=== PATIENT | female | born 1950 | race African-American/Black ===

== ENCOUNTER 2025-02-21 04:14 | Emergency (ER) | payer MEDICARE, SELFPAY ==
[2025-02-21] VITALS (20 sets, daily range): BP systolic 115–146; BP diastolic 53–110; PULSE 59–71; RESP 11–23; TEMP 36.5; O2SAT 96–100
--- NOTE | ~2025-02-21 | XR_ITS ---
Portable chest x-ray Comparison: None Clinical History: Chills, seizure Findings: Lungs are clear, without focal consolidation or pleural effusion. Cardiomediastinal silho uette is unremarkable. Bones and soft tissues are unremarkable. Impression: Normal chest. Reviewed, dictated and finalized at [facility]. Impression: Normal chest.
--- NOTE | ~2025-02-21 | CT_ITS ---
CT ANGIOGRAM NECK AND HEAD History: CVA, aneurysm, seizure. Technique: Axial noncontrast imaging of the brain was performed. Serial spiral axial images through t he head and neck were then obtained during arterial phase IV injection of 100 cc of Omnipaque 350. 3- D postprocessing and MIP images were then reconstructed on the remote workstation. Dose reduction nathalie hnique was used on this scan by utilizing automated exposure control and iterative reconstruction nathalie hnique. The dose-length product (DLP) was 1576.89 mGy-cm. CTA neck findings: Bilateral vertebral arteries are patent. Bilateral common carotid, internal carot id, and external carotid arteries are patent. There are scattered calcified plaques the proximal inte rnal carotid arteries, without significant stenosis. No large vessel occlusion seen. The proximal rig ht internal carotid artery demonstrates 0% stenosis relative to the normal distal artery lumen diamet er. The proximal left internal carotid artery demonstrates 0% stenosis relative to the normal distal artery lumen diameter. CTA head findings: Distal vertebral arteries, basilar artery, and posterior cerebral arteries are pat ent. Distal internal carotid arteries, middle cerebral arteries, and anterior cerebral arteries are p atent. No large vessel occlusion. No patent aneurysm identified. No stenosis evident. Axial noncontrast imaging of brain demonstrates aneurysm clips at the right atka of [place] region. There is chronic encephalomalacia in the right parietal lobe. No definite acute infarct or acute intr acranial hemorrhage seen. No mass effect or midline shift. Paranasal sinuses and mastoid air cells ar e clear. Calvarium intact. Impression: No significant/acute abnormality seen. Aneurysm clips at the right atka of [place] region. 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 Reviewed, dictated and finalized at location . Impression: No significant/acute abnormality seen. Aneurysm clips at the right [place]ka of [place] region. 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
--- NOTE | 2025-02-21 04:27 | ED.SEIZURE ---
HPI - Seizure General Chief Complaint: Unspecified Stated Complaint: seizure Time Seen by Provider: 02/21/25 04:26 Source: patient and family (Son, granddaughter) Mode of arrival: ambulatory History of Present Illness HPI Narrative: [id number] Patient presents with report of bilateral arm shaking/tremors. She has a history of seizures for which she is on both Keppra and divalproex. She states she has been taking her medications. She thought perhaps there has been some dose changes recently but she does not know, her daughter was helping her. History of a CVA and in a few years ago. Patient states she thought she had possibly been missing some doses of medication but unsure. Patient states she was having difficulty wiping herself after having a bowel movement due to the tremors although she remained conscious the entire time. After having a bowel movement she walked back to the couch and her granddaughter reports seeing the bilateral arm shaking. No loss of consciousness. Did not strike her head. No tongue trauma. No incontinence. She denies any new medications. Does not drink alcohol any longer. Denies any recreational drugs. States her sleep has been fine. She notes that she has been eating and drinking okay. Her only other symptoms review of symptom is that she has felt very chilled lately, cold constantly. No cough, no diarrhea, no sick contacts. Patient resides out of town, her PCP is Tammie Putnam in [place] and her neurologist is Reyes Colunga. Related Data Allergies Allergy/AdvReac Type Severity Reaction Status Date / Time No Known Allergies Allergy Verified 02/21/25 07:49 [facility] Past Medical History Medical History (Updated 02/22/25 @ 00:00 by Alicia Hull) Chronic right shoulder pain Seizure disorder Right hand dominant Aneurysm CVA (cerebral vascular accident) Social History Social History Social History: Has a daughter in [place] and a son & grand-daughter in the area Additional living arrangements comments: Resides in [place] Exam Narrative: GENERAL: Thin but well-nourished, and in no acute distress. HEAD: Normocephalic, atraumatic. EYES: Non injected, non icteric ENT: Nares clear, no rhinorrhea or epistaxis. Gross auditory acuity intact. NECK: Supple. No meningismus. CHEST: Speaking in full sentences. No respiratory distress. HEART: Regular rate and rhythm. . ABDOMEN: Soft, nondistended. EXTREMITIES: Normal range of motion. SKIN: Warm, dry, no rash. NEURO: No focal deficits. Alert and oriented. Answering questions. Following commands. Normal speech without aphasia or dysarthria. PSYCH: Normal mood and affect. Course Vital Signs Vital signs: Vital Signs Temperature 97.7 F 02/21/25 04:36 Pulse Rate 66 02/21/25 04:36 Respiratory Rate 15 02/21/25 04:36 Blood Pressure 134/81 02/21/25 04:36 Pulse Oximetry 100 02/21/25 04:36 Oxygen Delivery Room Air 02/21/25 04:36 Temperature 97.7 F 02/21/25 04:36 Pulse Rate 59 L 02/21/25 07:46 Respiratory Rate 12 02/21/25 07:46 Blood Pressure 125/68 02/21/25 07:46 Pulse Oximetry 98 02/21/25 07:46 Oxygen Delivery Room Air 02/21/25 04:36 MDM - Seizure MDM Narrative Medical decision making narrative: Patient presents with report of concern for seizure. She has a known seizure disorder for which she is on Keppra and divalproex. Patient reports that she had bilateral arm tremors while she was attempting to wipe after using the restroom. Granddaughter witnessed bilateral arms shaking but patient retained consciousness. In the emergency department they are afebrile with vital signs within normal limits. Has been chilled. Work up generally unremarkable except for ua. Will treat as UTI. Given first dose Abx in ED with rest of course prescribed. Advised f/u with PCP and neurologist back in [place]. Differential Diagnosis Differential diagnosis: Likely intractable seizure disorder, focal seizure, generalized seizure, new onset seizure, epileptic seizure, status epilepticus and other (Aneurysm, intracranial hemorrhage, subtherapeutic antiepileptics, thyroid disorder, electrolyte abnormalities) Lab Data Attestation: I reviewed the patient's lab results. 02/21/25 05:54 02/21/25 05:54 Labs: Lab Results 02/21/25 Range/Units 05:54 WBC 8.5 (4.5-10.0) K/mm3 RBC 4.10 L (4.2-5.4) M/mm3 Hgb 12.0 (12.0-15.0) g/dL Hct 35.9 L (37.0-47.0) % MCV 87.6 (80-100) fl MCH 29.3 (26-34) pg MCHC 33.4 (32-36) g/dl RDW 15.3 H (11.5-14.5) % Plt Count 122 L (150-375) k/mm3 MPV 12.1 H (7.4-10.4) fl Immature Gran % (Auto) 0.2 (0-0.5) % Neut % (Auto) 72.0 (45.5-73.1) % Lymph % (Auto) 11.7 L (18.3-44.2) % [place] % (Auto) 15.8 H (2.6-8.5) % Eos % (Auto) 0.1 (0-4.4) % Baso % (Auto) 0.2 (0.2-1.2) % Lymph # (Auto) 1.00 (0.9-3.2) K/mm3 [place] # (Auto) 1.4 H (0.1-0.6) K/mm3 Eos # (Auto) 0.0 (0-0.3) K/mm3 Baso # (Auto) 0.0 (0.0-0.1) K/mm3 Abs Immat Gran (auto) 0.02 (0.00-0.031) K/mm3 Absolute Neuts (auto) 6.1 (1.3-6.7) K/mm3 Absolute Nucleated RBC 0.000 (0.0-0.012) K/mm3 Nucleated RBC % 0.0 (0.0-0.2) % Sodium 144 (137-145) mmol/L Potassium 3.5 (3.4-5.0) mmol/L Chloride 106 (98-107) mmol/L Carbon Dioxide 29 (22-30) mmol/L Anion Gap 9 (4-12) mmol/L BUN 13 (7-17) mg/dL Creatinine 0.75 (0.7-1.0) mg/dL Estim Creat Clear Calc 43 ml/min Estimated GFR > 60 (59 - ) Glucose 82 (65-110) mg/dL Calcium 9.7 (8.4-10.2) mg/dL Magnesium 2.0 (1.6-2.3) mg/dL Total Bilirubin 0.3 (0.2-1.3) mg/dL AST 26 (14-36) U/L ALT 16 (6-35) U/L Alkaline Phosphatase 69 (38-126) U/L Total Creatine Kinase 72 (30-135) U/L Total Protein 7.0 (6.3-8.2) g/dL Albumin 4.2 (3.5-5.1) g/dL TSH 1.160 (0.465-4.680) uIU/mL Urine Color Yellow (Yellow) Urine Appearance Clear (Clear) Urine pH 5.5 (5.0-9.0) Ur Specific [place] 1.015 (1.001-1.035) Urine Protein Negative (Negative) mg/dL Urine Glucose (UA) Negative (Negative) mg/dL Urine Ketones Negative (Negative) mg/dL Ur Blood (Man) Negative (Negative) Urine Nitrate Negative (Negative) Urine Bilirubin Negative (Negative) Urine Urobilinogen 0.2 (<2.0) mg/dL Leukocyte Esterase Rfl 2+ H (Negative) SCOTTIE/UL Urine RBC 0-2 (0-2) /hpf Urine WBC 11-20 H (0-3) /hpf Ur Squamous Epith Cells Occasional (Few) /hpf Urine Bacteria None seen /hpf Urine Casts 0-2 Urine Opiates Screen Negative (Negative) Urine Methadone Screen Negative (Negative) Ur Barbiturates Screen Negative (Negative) Free Valproic Acid Pending Total Valproic Acid Pending Levetiracetam Pending Ur Phencyclidine Scrn Negative (Negative) Ur Amphetamine Screen Negative (Negative) U Benzodiazepines Scrn Negative (Negative) Urine Cocaine Screen Negative (Negative) U Cannabinoids Screen Negative (Negative) Influenza A (RT-PCR) Negative (Negative) Influenza B (RT-PCR) Negative (Negative) RSV (RT-PCR) Negative (Negative) SARS-CoV-2 RNA (RT-PCR) Negative (Negative) Imaging Data Radiologist's impression: Impressions Chest X-Ray 02/21/25 06:14 Impression: Normal chest. Head/Neck CTA 02/21/25 07:37 Impression: No significant/acute abnormality seen. Aneurysm clips at the right [place]. 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 Discharge Plan Discharge Clinical Impression: Chills (without fever), Abnormal urinalysis, History of seizure, Tremors of nervous system, Encephalomalacia Patient Disposition: Home Condition: Stable Instructions: Antibiotic Form, Epilepsy (DC), Urinary Tract Infection in Older Adults (ED) Additional Instructions: Your workup was reassuring although you did have an abnormal urinalysis and so are being treated for urinary tract infection. You received your first dose of antibiotic in the ED and the rest has been prescribed. It might explain why you have been feelign chilled and shaking. Continue taking your medications as prescribed including your anti seizure medications. Follow-up with your primary care physician and neurologist back in [place]. Return to the emergency department any new or worsening symptoms Patient Language: Marshallese Prescriptions: New cephalexin 500 mg tablet 500 mg PO Q6H 5 Days Qty: 19 0RF Rx Instructions: received first dose in ED 7/3 AM Follow-up/Referrals: PHYSICIAN NOT ON STAFF,NONSTAFF [Primary Care Provider] - Time of Disposition: 07:52
--- OUTSIDE RECORDS SUMMARY | 2025-02-21 05:42 | XMS_ITS | Encounter Summary ---
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
--- OUTSIDE RECORDS SUMMARY | 2025-02-21 05:42 | XMS_ITS | Encounter Summary ---
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 Gender Identity Not on file Sexual Orientation Not on file documented as of this encounter Miscellaneous Notes * Miscellaneous - Iggy Grover MD - 04/21/2012 8:03 AM CDT Verified Results Collected/Examined: Apr 12, 2012 12:00AM MW MAMMO SCREEN DIG WITH CAD REPORT [facility] [address] [place] [address] * [place] [address] * [phone] Patient: Jojo Shook Date of : 1950 Referring Physician: Iggy Grover cc: Exam Date: 04/12/2012 Procedure: Digital Screening Mamm w/cad - bilateral REASON FOR EXAM / PATIENT HISTORY Patient is 61 years old and is seen for screening. The patient has no significant personal risk factors. The patient has no personal history of cancer.The patient has no family history of breast cancer. The following views were obtained: bilateral CC and bilateral MLO. FILM COMPARISON The present examination has been compared to a prior imaging study performed at [facility] on 01/27/2007. MAMMOGRAM CAD-analysis was used in the interpretation of this study. There are scattered fibroglandular densities. There are no suspicious masses, areas of architectural distortion or malignant appearing calcifications identified. IMPRESSION No mammographic evidence of malignancy. Routine follow-up mammogram in 1 year is recommended. Patient will receive a reminder letter. BI-RADS CATEGORY 1: Negative Judy Hudson MD Electronically Signed: 04/20/2012 at 12:20:48 PM Your patient will receive the results of this examination as outlined by the Mammography Quality Standards Act. Jojo Shook, [id number] 1950 1 Page 1 * Miscellaneous - Iggy Grover MD - 04/21/2012 8:03 AM CDT Verified Results Collected/Examined: Apr 12, 2012 12:00AM MW MAMMO SCREEN DIG WITH CAD REPORT [facility] [address] [place] [address] * [place] [address] * [phone] Patient: Jojo Shook Date of : 1950 Referring Physician: Iggy Grover cc: Exam Date: 04/12/2012 Procedure: Digital Screening Mamm w/cad - bilateral REASON FOR EXAM / PATIENT HISTORY Patient is 61 years old and is seen for screening. The patient has no significant personal risk factors. The patient has no personal history of cancer.The patient has no family history of breast cancer. The following views were obtained: bilateral CC and bilateral MLO. FILM COMPARISON The present examination has been compared to a prior imaging study performed at [facility] on 01/27/2007. MAMMOGRAM CAD-analysis was used in the interpretation of this study. There are scattered fibroglandular densities. There are no suspicious masses, areas of architectural distortion or malignant appearing calcifications identified. IMPRESSION No mammographic evidence of malignancy. Routine follow-up mammogram in 1 year is recommended. Patient will receive a reminder letter. BI-RADS CATEGORY 1: Negative Judy Hudson MD Electronically Signed: 04/20/2012 at 12:20:48 PM Your patient will receive the results of this examination as outlined by the Mammography Quality Standards Act. Jojo Shook, [id number] 1950 1 Page 1 documented in this encounter Plan of Treatment Not on file documented as of this encounter Visit Diagnoses Not on filedocumented in this encounter Care Teams Tyre Builder Relationship Specialty Start Date End Date Iggy Grover MD PCP - General 11/20/14 documented as of this encounter
--- OUTSIDE RECORDS SUMMARY | 2025-02-21 05:42 | XMS_ITS | Encounter Summary ---
Author Organization [facility] Address [address] [place] [address] Care Team Providers Care Technical Services Analyst Name Role Phone Iggy Grover MD Primary Care Provider Kathy addison Encounter Details Date Type Department Care Team (Late st Contact Info) Description 01/21/2011 Allscripts Note [facility] - [place] [address] [facility] [address] [place] [address] Iggy Grover MD No Forwarding Address Social History Tobacco Use Types Packs/Day Years Used Date Smoking Tobacco: Never Assessed Comments Unknown Sex and Gender Information Value Date Recorded Sex Assigned at Not on file 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 Gender Identity Not on file Sexual Orientation Not on file documented as of this encounter Miscellaneous Notes * Miscellaneous - Iggy Grover MD - 01/21/2011 9:36 AM CDT Verified Results Collected/Examined: January 19, 2011 3:52PM Test Result Flag Acceptable HL Basic Metabolic Panel Sodium 139 MEQ/L 134-144 Potassium 4.1 MEQ/L 3.5-5.1 Chloride 103 MEQ/L 101-111 Carbon Dioxide 28 MEQ/L 23-32 Creatinine 0.7 mg/dL 0.4-1.1 Blood Urea Nitrogen 11 mg/dL 8-26 Glucose 94 mg/dL 65-100 Anion Gap 8 3-15 Calcium 9.4 mg/dL 8.8-10.5 Gfrf Aa 102 Chronic Kidney Disease less than 60 mL/min/1.73 sq.m Kidney failure less than 15 mL/min/1.73 sq.m Gfrf Non Aa 85 Chronic Kidney Disease less than 60 mL/min/1.73 sq.m Kidney failure less than 15 mL/min/1.73 sq.m Discussion/Summary Ms. Shook- Blood test is normal. Chele Grover * Miscellaneous - Iggy Grover MD - 01/21/2011 9:36 AM CDT Verified Results Collected/Examined: January 19, 2011 3:52PM Test Result Flag Acceptable HL Basic Metabolic Panel Sodium 139 MEQ/L 134-144 Potassium 4.1 MEQ/L 3.5-5.1 Chloride 103 MEQ/L 101-111 Carbon Dioxide 28 MEQ/L 23-32 Creatinine 0.7 mg/dL 0.4-1.1 Blood Urea Nitrogen 11 mg/dL 8-26 Glucose 94 mg/dL 65-100 Anion Gap 8 3-15 Calcium 9.4 mg/dL 8.8-10.5 Gfrf Aa 102 Chronic Kidney Disease less than 60 mL/min/1.73 sq.m Kidney failure less than 15 mL/min/1.73 sq.m Gfrf Non Aa 85 Chronic Kidney Disease less than 60 mL/min/1.73 sq.m Kidney failure less than 15 mL/min/1.73 sq.m Discussion/Summary Ms. Shook- Blood test is normal. Chele Grover documented in this encounter Plan of Treatment Not on file documented as of this encounter Visit Diagnoses Not on filedocumented in this encounter Care Teams Technical Services Analyst Relationship Specialty Start Date End Date Iggy Grover MD PCP - General 11/20/14 documented as of this encounter
--- OUTSIDE RECORDS SUMMARY | 2025-02-21 05:42 | XMS_ITS | Encounter Summary ---
Author Organization [facility] Address [address] [place] [address] Care Team Providers Care Elevator Mechanic Apprentice Name Role Phone Iggy Grover MD Primary Care Provider Kathy addison Encounter Details Date Type Department Care Team (Late st Contact Info) Description 11/05/2010 Allscripts Note [facility] - [place] [address] [facility] [address] [place] [address] Iggy Grover MD No Forwarding Address Social History Tobacco Use Types Packs/Day Years Used Date Smoking Tobacco: Never Assessed Comments Unknown Sex and Gender Information Value Date Recorded Sex Assigned at Not on file 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 Gender Identity Not on file Sexual Orientation Not on file documented as of this encounter Miscellaneous Notes * Miscellaneous - Iggy Grover MD - 11/05/2010 8:32 PM CDT Verified Results Collected/Examined: Nov 02, 2010 4:15PM Test Result Flag Acceptable HL Complete Blood Count And Differential WHITE BLOOD CELL COUNT 6.53 TH/uL 4.00-11.00 Red Blood Cell Count 4.91 MIL/uL 4.00-5.00 Hemoglobin 13.6 g/dL 12.0-15.0 Hematocrit 39 % 36-45 Mean Corpuscular Volume 79 fL L 80-99 Mean Corpuscular Hgb 28 pg 27-34 Mean Corpuscular Hgb Conc 35 % 32-36 Red Cell Distribution Width 14.8 % H 9.0-14.5 Platelet Count 246 TH/uL 140-400 Mean Platelet Volume 11.4 fL 9.4-12.3 % Segmented Neutrophils, Auto 45 % 45-78 % Lymphocytes, Auto 43 % 15-47 % Monocytes, Auto 9 % 0-12 % Eosinophils, Auto 2 % 0-7 % Basophils, Auto 1 % 0-2 # Grans 2.95 TH/uL 1.70-6.80 # Lymphs 2.80 TH/uL 1.00-3.30 # Monos 0.59 TH/uL 0.20-0.90 # Eos 0.15 TH/uL 0.00-0.40 # Basos 0.04 TH/uL 0.00-0.10 Urinalysis Appearance, Urine Yellow Bilirubin, Urine Negative Negative Ketones, Urine Negative Negative Specific [place] 1.010 1.001-1.030 Urine Protein, Qualitative Negative Negative Urobilinogen, Urine Negative Negative Leukocyte Negative Negative Glucose Urine Negative Negative Hemoglobin, Urine Negative Negative Ph, Urine 5.5 5.0-8.0 Thyroid Stimulating Hormone 0.82 uIU/mL 0.45-4.50 HL Comprehensive Metabolic Panel Albumin 4.3 g/dL 3.5-5.0 Aspartate Aminotransferase 20 IU/L 15-41 Alanine Aminotransferase 11 IU/L L 14-63 Bilirubin Total 0.9 mg/dL 0.3-1.4 Protein Total Serum 6.8 g/dL 6.0-8.0 Calcium 9.8 mg/dL 8.8-10.5 Creatinine 0.6 mg/dL 0.4-1.1 Glucose 86 mg/dL 65-100 Alkaline Phosphatase 81 IU/L 42-128 Sodium 138 MEQ/L 134-144 Potassium 3.7 MEQ/L 3.5-5.1 Chloride 102 MEQ/L 101-111 Anion Gap 6 3-15 Blood Urea Nitrogen 10 mg/dL 8-26 Carbon Dioxide 30 MEQ/L 23-32 Gfrf Aa 122 Chronic Kidney Disease less than 60 mL/min/1.73 sq.m Kidney failure less than 15 mL/min/1.73 sq.m Gfrf Non Aa 102 Chronic Kidney Disease less than 60 mL/min/1.73 sq.m Kidney failure less than 15 mL/min/1.73 sq.m HL Lipid Panel Hours Post Parandial 9 H Cholesterol Lipid Prof 219 mg/dL H 100-200 Triglycerides 70 mg/dL 0-150 Hdl 60 mg/dL 40-110 Ldl Cholesterol 145 mg/dL H 0-99 Total Cholesterol/Hdl Ratio 3.7 0.0-4.5 Non- HDL Cholesterol 159 mg/dL H 0-130 Discussion/Summary Ms. Shook- Cholesterol is somewhat elevated, but labs otherwise look ok. Please call if you have any questions. Chele Grover * Miscellaneous - Iggy Grover MD - 11/05/2010 8:32 PM CDT Verified Results Collected/Examined: Nov 02, 2010 4:15PM Test Result Flag Acceptable HL Complete Blood Count And Differential WHITE BLOOD CELL COUNT 6.53 TH/uL 4.00-11.00 Red Blood Cell Count 4.91 MIL/uL 4.00-5.00 Hemoglobin 13.6 g/dL 12.0-15.0 Hematocrit 39 % 36-45 Mean Corpuscular Volume 79 fL L 80-99 Mean Corpuscular Hgb 28 pg 27-34 Mean Corpuscular Hgb Conc 35 % 32-36 Red Cell Distribution Width 14.8 % H 9.0-14.5 Platelet Count 246 TH/uL 140-400 Mean Platelet Volume 11.4 fL 9.4-12.3 % Segmented Neutrophils, Auto 45 % 45-78 % Lymphocytes, Auto 43 % 15-47 % Monocytes, Auto 9 % 0-12 % Eosinophils, Auto 2 % 0-7 % Basophils, Auto 1 % 0-2 # Grans 2.95 TH/uL 1.70-6.80 # Lymphs 2.80 TH/uL 1.00-3.30 # Monos 0.59 TH/uL 0.20-0.90 # Eos 0.15 TH/uL 0.00-0.40 # Basos 0.04 TH/uL 0.00-0.10 Urinalysis Appearance, Urine Yellow Bilirubin, Urine Negative Negative Ketones, Urine Negative Negative Specific [place] 1.010 1.001-1.030 Urine Protein, Qualitative Negative Negative Urobilinogen, Urine Negative Negative Leukocyte Negative Negative Glucose Urine Negative Negative Hemoglobin, Urine Negative Negative Ph, Urine 5.5 5.0-8.0 Thyroid Stimulating Hormone 0.82 uIU/mL 0.45-4.50 HL Comprehensive Metabolic Panel Albumin 4.3 g/dL 3.5-5.0 Aspartate Aminotransferase 20 IU/L 15-41 Alanine Aminotransferase 11 IU/L L 14-63 Bilirubin Total 0.9 mg/dL 0.3-1.4 Protein Total Serum 6.8 g/dL 6.0-8.0 Calcium 9.8 mg/dL 8.8-10.5 Creatinine 0.6 mg/dL 0.4-1.1 Glucose 86 mg/dL 65-100 Alkaline Phosphatase 81 IU/L 42-128 Sodium 138 MEQ/L 134-144 Potassium 3.7 MEQ/L 3.5-5.1 Chloride 102 MEQ/L 101-111 Anion Gap 6 3-15 Blood Urea Nitrogen 10 mg/dL 8-26 Carbon Dioxide 30 MEQ/L 23-32 Gfrf Aa 122 Chronic Kidney Disease less than 60 mL/min/1.73 sq.m Kidney failure less than 15 mL/min/1.73 sq.m Gfrf Non Aa 102 Chronic Kidney Disease less than 60 mL/min/1.73 sq.m Kidney failure less than 15 mL/min/1.73 sq.m HL Lipid Panel Hours Post Parandial 9 H Cholesterol Lipid Prof 219 mg/dL H 100-200 Triglycerides 70 mg/dL 0-150 Hdl 60 mg/dL 40-110 Ldl Cholesterol 145 mg/dL H 0-99 Total Cholesterol/Hdl Ratio 3.7 0.0-4.5 Non- HDL Cholesterol 159 mg/dL H 0-130 Discussion/Summary Ms. Shook- Cholesterol is somewhat elevated, but labs otherwise look ok. Please call if you have any questions. Chele Grover documented in this encounter Plan of Treatment Not on file documented as of this encounter Visit Diagnoses Not on filedocumented in this encounter Care Teams Elevator Mechanic Apprentice Relationship Specialty Start Date End Date Iggy Grover MD PCP - General 11/20/14 documented as of this encounter
--- OUTSIDE RECORDS SUMMARY | 2025-02-21 05:42 | XMS_ITS | Encounter Summary ---
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
--- OUTSIDE RECORDS SUMMARY | 2025-02-21 05:43 | XMS_ITS | Encounter Summary ---
Author Organization [facility] Address [address] [place] [address] Care Team Providers Care Director Of Loss Prevention Name Role Phone Iggy Grover MD Primary Care Provider Kathy addison Encounter Details Date Type Department Care Team (Late st Contact Info) Description 07/05/2013 PracPart Note [facility] Neurology [address] [place] [address] Narayan Mejias MD NO FORWARDING INFORMATION Social History Tobacco Use Types Packs/Day Years Used Date Smoking Tobacco: Never Assessed Comments Unknown Sex and Gender Information Value Date Recorded Sex Assigned at Not on file Legal Sex Female 4:24 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 :04:49PM .T:sleep study results From: Narayan Mejias ([facility]) Originated by: Narayan Mejias ([facility]) Sent: 07/05/2013 at 04:49PM To: Bianca Suero () Type: Priority: 3 Subject: sleep study results Thank you! Original Message: From: To: [facility] Subject: sleep study results Priority: 3 Date: 07/05/2013 Ayana changed location of results for me and it is under other studies on the right side. TM Original Message: From: [facility] To: Subject: sleep study results Priority: 3 Date: 07/03/2013 This patient says she underwent her sleep study at [facility], but I dont' see the study results in her file. Could you (or whoever might do this regularly) track the results down for me? Thanks, --[facility] documented in this encounter Plan of Treatment Not on file documented as of this encounter Visit Diagnoses Not on filedocumented in this encounter Care Teams Director Of Loss Prevention Relationship Specialty Start Date End Date Iggy Grover MD PCP - General 11/20/14 documented as of this encounter
--- OUTSIDE RECORDS SUMMARY | 2025-02-21 05:43 | XMS_ITS | Encounter Summary ---
Author Organization [facility] Address [address] [place] [address] Care Team Providers Care Manager Of Financial Reporting Name Role Phone Yina Putnam MD Primary Care Provider [phone] Yina Putnam MD Unavailable [phone] Teofilo Campbell DO Unavailable [phone] Reason for Visit * Reason Comments Med Change Request Encounter Details Date Type Department Care Team ([facility] st Contact Info) Description 09/07/2024 Refill Emergency Department: [place], [place] [address] [facility] [address] [place] [address] Arely Walton APRN-ELECTRICIAN OUTSIDE [address] [place] [address] Social History Tobacco Use Types Packs/Day Years Used Date Smoking Tobacco: Former Cigarettes 0.3 20 2 - 2021 Smokeless Tobacco: Never Alcohol Use Standard Drinks/Week Comments Yes 3 (1 standard drink = 0.6 oz pur e alcohol) PHQ-2 Answer Date Recorded PHQ-2 Score 0 06/28/2024 Social Connections Answer Date Recorded Do you often feel that you lack companionship? N o 12/28/2023 Alcohol Use Answer Date Recorded Alcohol Use Yes 06/28/2024 Male: 9+ ounces (15+ Standard Drinks) per week T hreshold Not on file 06/28/2024 Female: 4.8+ ounces (8+ Standard Drinks) per wee k Threshold 1.8 06/28/2024 Financial Resource Strain Answer Date R ecorded In the last 12 months, has y our [employer] company shut off your service for not paying your bills? No 06/24/2024 Do problems getting childcar e make it difficult to work or study? No 06/24/2024 In the last 12 months, have you needed to see a doctor, but could not because of cost? Yes 06/24/2024 In the last 12 months, did you skip medications to save money? Yes 06/24/2024 Food Insecurity Answer Date Recorded Within the past 12 months we worried whether our food would run out before we got money to buy more. Sometimes True 024 Within the past 12 months th e food we bought just didn't last and we didn't have money to get more. Sometimes True 06/24/2024 Transportation Needs Answer Date Record ed In the past 12 months, have you ever gone without health care because you didn't have a way to get there? Yes 06/24/2024 Housing Stability Answer Date Recorded Are you worried that in the next 2 months, you may not have stable housing? Yes 06/24/2024 Health Literacy Answer Date Recorded Do you have problems underst anding what is told to you about your medical conditions? No 12/28/2023 Education Answer Date Recorded What is the highest level of school you have completed or the highest degree you have received? 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 Not on file Not on file documented as of this encounter Functional Status * Does the patient have a hearing impairment: Answer Date of Assessment Author No 09/07/2024 3:00 PM MENTAL HEALTH UNIT LEAD PSYCHOLOGIST Kristy Quintana RN * Does the patient have a visual impairment: Answer Date of Assessment Author Yes 07/03/2024 10:34 AM MENTAL HEALTH UNIT LEAD PSYCHOLOGIST Zay Frazier * Does the patient have impaired ambulation: Answer Date of Assessment Author No 06/19/2021 10:25 AM CDT Priyanka Rothman RN * Does the patient have an activity of daily living (ADL) impairment: Answer Date of Assessment Author No 06/19/2021 10:25 AM CDT Priyanka Rothman RN * Does the patient have an instrumental activity of daily living (IADL) impairment: Answer Date of Assessment Author Yes 06/19/2021 10:25 AM CDT Priyanka Rothman RN documented as of this encounter Mental Status * Does the patient have a cognitive impairment: Answer Entry Date Author Yes 06/19/2021 10:25 AM CDT Priyanka Rothman RN documented in this encounter Plan of Treatment Not on file documented as of this encounter Goals Goal Patient Goal Type Associated Problems Recent Progress Patient-Stated? Author Smoking Cessation Lifestyle On track( 021 3:15 PM CDT) Yes Jojo Salvador RN Note: To get better and quit smoking and get more healthy documented as of this encounter Visit Diagnoses Not on filedocumented in this encounter Additional Health Concerns Infection Onset Date Last Indicated Resolved Time Covid-19 Rule-Out 09/18/2024 09/18/2024 09/18/2024 2:11 AM MENTAL HEALTH UNIT LEAD PSYCHOLOGIST Flu/RSV Rule-Out 09/18/2024 09/18/2024 09/18/2024 2:11 AM MENTAL HEALTH UNIT LEAD PSYCHOLOGIST Assessment Noted Time PHQ-9 Depression Total Score: 3 02/18/20 22 11:16 AM CDT A fall risk assessment has been complete d for the patient 09/07/2024 8:00 PM MENTAL HEALTH UNIT LEAD PSYCHOLOGIST A Body Mass Index follow-up plan has been documented for the patient 08/06/2019 7:29 AM MENTAL HEALTH UNIT LEAD PSYCHOLOGIST PHQ-2 Depression Total Score: 0 06/28/20 24 7:46 AM MENTAL HEALTH UNIT LEAD PSYCHOLOGIST documented as of this encounter Care Teams Manager Of Financial Reporting Relationship Specialty Start Date End Date Yina Putnam MD [address] [place] [address] PCP - General Family Medicine 08/02/19 Yina Putnam MD [address] [place] [address] CCP - Continuity of Care Provider Family Medicine 08/02/19 Teofilo Campbell DO [address] [place], [place] [id number] Neurology 08/28/21 documented as of this encounter
--- OUTSIDE RECORDS SUMMARY | 2025-02-21 05:43 | XMS_ITS | Clinical Summary ---
Author Organization [facility] Address [address] [place] [address] Care Team Providers Care Computer Security Manager Name Role Phone Iggy Grover MD Primary Care Provider Kathy addison Active Problems Problem Noted Date Diagnosed Date Memory loss 07/05/2013 Migraine without aura 07/05/2013 Overview (05/22/2015): ICD-10 conversion Other and unspecified compli cations of medical care, not elsewhere classified 05/11/2013 Attention or concentration deficit 05/11/2013 Other specified abnormal findings of blood chemi stry 04/19/2013 Overview (05/23/2017): IMO Replacement Update Cognitive disorder 04/13/2013 Hyperlipidemia 04/19/2012 Overview (05/23/2015): ICD10 Benign essential hypertension 10/13/2010 Immunizations Immunization Administration Dates Next Due Td 11/20/2009 Family History Medical History Relation Name Comments Cancer Father Cancer; oral Hyperlipidemia Mother Hypercholeste rolemia; Hypertension Mother Hypertension; Stroke Mother Stroke Syndrome ; Hyperlipidemia Sister Hypercholeste rolemia; Hypertension Sister Essential Hyper tension; Relation Name Status Comments Father Mother Sister Social History Tobacco Use Types Packs/Day Years Used Date Smoking Tobacco: Smoker, Current Status Unknown Comments Unknown Sex and Gender Information Value Date Recorded Sex Assigned at Not on file Legal Sex Female 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 BALLET 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 MEMBER Gender Identity Not on file Sexual Orientation Not on file Last Filed Vital Signs Vital Sign Reading Time Taken Comments Blood Pressure 146/74 07/03/2013 4:14 PM BALLET COMPANY MEMBER Pulse 67 07/03/2013 4:14 PM BALLET COMPANY MEMBER Temperature 36.7 C (98.1 F) 07/03/2013 4:14 PM BALLET COMPANY MEMBER Respiratory Rate - - Oxygen Saturation - - Inhaled Oxygen Concentration - - Weight 61.2 kg (135 lb) 07/03/2013 4:14 PM BALLET COMPANY MEMBER Height 162.6 cm (5' 4) 07/03/2013 4:14 PM BALLET COMPANY MEMBER Body Mass Index 23.17 07/03/2013 4:14 PM BALLET COMPANY MEMBER Plan of Treatment Health Maintenance Due Date Last Done Comments Pneumococcal Vaccine: 50+ Years (1 of 1 - PCV) 2000 Zoster Vaccine# (1 of 2) 2000 Fall Risk Assessment # 10/27/2015 Td/Tdap# 11/21/2019 11/20/2009 Influenza Vaccine (Season Ended) 2025 RSV Vaccine: Adults (75+YO) or (high risk 60-74 YO) or () (1 - 1-dose 75+ series) 2025 Colonoscopy Discontinued 05/01/2012, 08/22/2006 Colorectal Cancer Screening Discontinued FIT-DNA Discontinued Fecal Occult Blood or FIT Discontinued Hepatitis B Vaccine Aged Out No longe r eligible based on patient's age to complete this topic Sigmoidoscopy Discontinued Procedures Procedure Name Priority Date/Time Associated Diagnosis Comments COLONOSCOPY Routine 05/01/2012 12:00 AM CDT from Last 3 Months or Most Recently Relevant to Health Maintenance Results * (ABNORMAL) COLONOSCOPY (05/01/2012 12:00 AM CDT) 05/01/2012 05/24/2012 10: 31 AM CDT Narrative OFFICE ENTERED - 05/24/2012 10:32 AM CDT Abnl, see report. Repeat in 5 yrs Procedure Note ProviderKirby MD - 01/01/2015 Abnl, see report. Repeat in 5 yrs us Historical Provider GENERIC SURGICAL HISTORY Final Result OFFICE ENTERED from Last 3 Months or Most Recently Relevant to Health Maintenance Care Teams Computer Security Manager Relationship Specialty Start Date End Date Iggy Grover MD PCP - General 11/20/14
--- OUTSIDE RECORDS SUMMARY | 2025-02-21 05:43 | XMS_ITS | Encounter Summary ---
Author Organization [facility] Address [address] [place] [address] Care Team Providers Care Purchase Request Editor Name Role Phone Iggy Grover MD Primary Care Provider Kathy addison Encounter Details Date Type Department Care Team (Late st Contact Info) Description 07/03/2013 [facility]-Visit [facility] Slnc, Historical Social History Tobacco Use Types Packs/Day Years Used Date Smoking Tobacco: Never Assessed Comments Unknown Sex and Gender Information Value Date Recorded Sex Assigned at Not on file Legal Sex Female 4:24 PM SCIENTIFIC RESEARCH ASSOCIATE Gender Identity Not on file Sexual Orientation Not on file documented as of this encounter Last Filed Vital Signs Vital Sign Reading Time Taken Comments Blood Pressure 146/74 07/03/2013 4:14 PM SCIENTIFIC RESEARCH ASSOCIATE Pulse 67 07/03/2013 4:14 PM SCIENTIFIC RESEARCH ASSOCIATE Temperature 36.7 C (98.1 F) 07/03/2013 4:14 PM SCIENTIFIC RESEARCH ASSOCIATE Respiratory Rate - - Oxygen Saturation - - Inhaled Oxygen Concentration - - Weight 61.2 kg (135 lb) 07/03/2013 4:14 PM SCIENTIFIC RESEARCH ASSOCIATE Height 162.6 cm (5' 4) 07/03/2013 4:14 PM SCIENTIFIC RESEARCH ASSOCIATE Body Mass Index 23.17 07/03/2013 4:14 PM SCIENTIFIC RESEARCH ASSOCIATE documented in this encounter Plan of Treatment Not on file documented as of this encounter Visit Diagnoses Not on filedocumented in this encounter Care Teams Purchase Request Editor Relationship Specialty Start Date End Date Iggy Grover MD PCP - General 11/20/14 documented as of this encounter
--- OUTSIDE RECORDS SUMMARY | 2025-02-21 05:43 | XMS_ITS | Encounter Summary ---
Author Organization [facility] Address [address] [place] [address] Care Team Providers Care Supervisor Grinding Name Role Phone Iggy Grover MD Primary Care Provider Kathy addison Encounter Details Date Type Department Care Team (Late st Contact Info) Description 05/11/2013 Hist-Visit [facility] Slnc, Historical Social History Tobacco Use Types Packs/Day Years Used Date Smoking Tobacco: Never Assessed Comments Unknown Sex and Gender Information Value Date Recorded Sex Assigned at Not on file Legal Sex Female 4:24 PM SALESPERSON FURS Gender Identity Not on file Sexual Orientation Not on file documented as of this encounter Last Filed Vital Signs Vital Sign Reading Time Taken Comments Blood Pressure 153/77 05/11/2013 7:47 AM CDT Pulse 72 05/11/2013 7:47 AM CDT Temperature 36.8 C (98.3 F) 05/11/2013 7:47 AM CDT Respiratory Rate - - Oxygen Saturation - - Inhaled Oxygen Concentration - - Weight 61.2 kg (135 lb) 05/11/2013 7:47 AM CDT Height 160 cm (5' 3) 05/11/2013 7:47 AM CDT Body Mass Index 23.91 05/11/2013 7:47 AM CDT documented in this encounter Plan of Treatment Not on file documented as of this encounter Visit Diagnoses Not on filedocumented in this encounter Care Teams Supervisor Grinding Relationship Specialty Start Date End Date Iggy Grover MD PCP - General 11/20/14 documented as of this encounter
--- OUTSIDE RECORDS SUMMARY | 2025-02-21 05:43 | XMS_ITS | Encounter Summary ---
Author Organization [facility] Address [address] [place] [address] Care Team Providers Care Animal Trainer Supervisor Name Role Phone Iggy Grover MD Primary Care Provider Kathy addison Encounter Details Date Type Department Care Team (Late st Contact Info) Description 04/14/2012 Allscripts Note [facility] [place] [address] [place] [address] Iggy Grover MD No Forwarding Address Social History Tobacco Use Types Packs/Day Years Used Date Smoking Tobacco: Never Assessed Comments Unknown Sex and Gender Information Value Date Recorded Sex Assigned at Not on file 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 OPERATOR Gender Identity Not on file Sexual Orientation Not on file documented as of this encounter Miscellaneous Notes * Miscellaneous - Iggy Grover MD - 04/14/2012 8:30 AM CDT Verified Results Collected/Examined: Apr 12, 2012 9:31AM Test Result Flag Acceptable CBC with Diff WHITE BLOOD CELL COUNT 3.78 TH/uL L 4.00-11.00 Red Blood Cell Count 4.94 MIL/uL 4.00-5.00 Hemoglobin 13.9 g/dL 12.0-15.0 Hematocrit 40 % 36-45 Mean Corpuscular Volume 80 fL 80-99 Mean Corpuscular Hgb 28 pg 27-34 Mean Corpuscular Hgb Conc 35 % 32-36 Red Cell Distribution Width 14.4 % 9.0-14.5 Platelet Count 253 TH/uL 140-400 Mean Platelet Volume 12.1 fL 9.4-12.3 % Segmented Neutrophils, Auto 53 % 45-78 % Lymphocytes, Auto 33 % 15-47 % Monocytes, Auto 10 % 0-12 % Eosinophils, Auto 3 % 0-7 % Basophils, Auto 1 % 0-2 # Grans 2.02 TH/uL 1.70-6.80 # Lymphs 1.25 TH/uL 1.00-3.30 # Monos 0.36 TH/uL 0.20-0.90 # Eos 0.11 TH/uL 0.00-0.40 # Basos 0.04 TH/uL 0.00-0.10 CMP-Comprehensive Metabolic Panel Albumin 3.9 g/dL 3.5-5.0 Aspartate Aminotransferase 22 IU/L 15-46 Alanine Aminotransferase 18 IU/L 13-69 Bilirubin Total 0.8 mg/dL 0.2-1.3 Protein Total Serum 6.5 g/dL 6.0-8.2 Calcium 9.4 mg/dL 8.4-10.2 Creatinine 0.8 mg/dL 0.4-1.1 Glucose 75 mg/dL 70-100 Alkaline Phosphatase 87 IU/L 42-128 Sodium 145 MEQ/L 133-147 Potassium 4.2 MEQ/L 3.5-5.1 Chloride 107 MEQ/L 96-112 Anion Gap 11 3-15 Blood Urea Nitrogen 7 mg/dL 7-26 Carbon Dioxide 28 MEQ/L 22-30 Gfrf Aa 87 Chronic Kidney Disease less than 60 mL/min/1.73 sq.m^^ Kidney failure less than 15 mL/min/1.73 sq.m^^ Gfrf Non Aa 73 Chronic Kidney Disease less than 60 mL/min/1.73 sq.m^^ Kidney failure less than 15 mL/min/1.73 sq.m^^ Lipid Profile Hours Post Prandial 9 Cholesterol Lipid Prof 239 mg/dL H 100-200 Triglycerides 77 mg/dL 0-150 Hdl 58 mg/dL 40-110 Ldl Cholesterol 166 mg/dL H 0-99 Total Cholesterol/Hdl Ratio 4.1 0.0-4.5 Non- HDL Cholesterol 181 mg/dL H 0-130 Urinalysis And Microscopic Appearance, Urine Yellow Bilirubin, Urine Negative Negative Ketones, Urine Negative mg/dL Negative Specific [place] 1.016 1.001-1.030 Hemoglobin, Urine Small A Negative Urine Protein, Qualitative Trace mg/dL A Negative Urobilinogen, Urine Negative EU/dL Negative Leukocyte Positive A Negative Microscopic Done Epithelial Cells Absent Absent Microscopic Wbc, Urine >40 A 1 - 5 Glucose Urine Negative mg/dL Negative Microscopic Rbc, Urine 1 - 5 1 - 5 Bacteria Large A Absent Hyaline Cast Absent Absent Ph, Urine 5.5 5.0-8.0 Calcium Oxalate Crystal Present A Absent Discussion/Summary cholesterol has gotten too high. Start atorvastatin 10mg #30 1 qhs 3 ref. Recheck FLP, ALT 1 mo * Miscellaneous - Iggy Grover MD - 04/14/2012 8:30 AM CDT Verified Results Collected/Examined: Apr 12, 2012 9:31AM Test Result Flag Acceptable CBC with Diff WHITE BLOOD CELL COUNT 3.78 TH/uL L 4.00-11.00 Red Blood Cell Count 4.94 MIL/uL 4.00-5.00 Hemoglobin 13.9 g/dL 12.0-15.0 Hematocrit 40 % 36-45 Mean Corpuscular Volume 80 fL 80-99 Mean Corpuscular Hgb 28 pg 27-34 Mean Corpuscular Hgb Conc 35 % 32-36 Red Cell Distribution Width 14.4 % 9.0-14.5 Platelet Count 253 TH/uL 140-400 Mean Platelet Volume 12.1 fL 9.4-12.3 % Segmented Neutrophils, Auto 53 % 45-78 % Lymphocytes, Auto 33 % 15-47 % Monocytes, Auto 10 % 0-12 % Eosinophils, Auto 3 % 0-7 % Basophils, Auto 1 % 0-2 # Grans 2.02 TH/uL 1.70-6.80 # Lymphs 1.25 TH/uL 1.00-3.30 # Monos 0.36 TH/uL 0.20-0.90 # Eos 0.11 TH/uL 0.00-0.40 # Basos 0.04 TH/uL 0.00-0.10 CMP-Comprehensive Metabolic Panel Albumin 3.9 g/dL 3.5-5.0 Aspartate Aminotransferase 22 IU/L 15-46 Alanine Aminotransferase 18 IU/L 13-69 Bilirubin Total 0.8 mg/dL 0.2-1.3 Protein Total Serum 6.5 g/dL 6.0-8.2 Calcium 9.4 mg/dL 8.4-10.2 Creatinine 0.8 mg/dL 0.4-1.1 Glucose 75 mg/dL 70-100 Alkaline Phosphatase 87 IU/L 42-128 Sodium 145 MEQ/L 133-147 Potassium 4.2 MEQ/L 3.5-5.1 Chloride 107 MEQ/L 96-112 Anion Gap 11 3-15 Blood Urea Nitrogen 7 mg/dL 7-26 Carbon Dioxide 28 MEQ/L 22-30 Gfrf Aa 87 Chronic Kidney Disease less than 60 mL/min/1.73 sq.m^^ Kidney failure less than 15 mL/min/1.73 sq.m^^ Gfrf Non Aa 73 Chronic Kidney Disease less than 60 mL/min/1.73 sq.m^^ Kidney failure less than 15 mL/min/1.73 sq.m^^ Lipid Profile Hours Post Prandial 9 Cholesterol Lipid Prof 239 mg/dL H 100-200 Triglycerides 77 mg/dL 0-150 Hdl 58 mg/dL 40-110 Ldl Cholesterol 166 mg/dL H 0-99 Total Cholesterol/Hdl Ratio 4.1 0.0-4.5 Non- HDL Cholesterol 181 mg/dL H 0-130 Urinalysis And Microscopic Appearance, Urine Yellow Bilirubin, Urine Negative Negative Ketones, Urine Negative mg/dL Negative Specific [place] 1.016 1.001-1.030 Hemoglobin, Urine Small A Negative Urine Protein, Qualitative Trace mg/dL A Negative Urobilinogen, Urine Negative EU/dL Negative Leukocyte Positive A Negative Microscopic Done Epithelial Cells Absent Absent Microscopic Wbc, Urine >40 A 1 - 5 Glucose Urine Negative mg/dL Negative Microscopic Rbc, Urine 1 - 5 1 - 5 Bacteria Large A Absent Hyaline Cast Absent Absent Ph, Urine 5.5 5.0-8.0 Calcium Oxalate Crystal Present A Absent Discussion/Summary cholesterol has gotten too high. Start atorvastatin 10mg #30 1 qhs 3 ref. Recheck FLP, ALT 1 mo documented in this encounter Plan of Treatment Not on file documented as of this encounter Visit Diagnoses Not on filedocumented in this encounter Care Teams Animal Trainer Supervisor Relationship Specialty Start Date End Date Iggy Grover MD PCP - General 11/20/14 documented as of this encounter
--- OUTSIDE RECORDS SUMMARY | 2025-02-21 05:43 | XMS_ITS | Encounter Summary ---
Author Organization [facility] Address [address] [place] [address] Care Team Providers Care Ornamental Plaster Sticker Name Role Phone Iggy Grover MD Primary Care Provider Kathy addison Encounter Details Date Type Department Care Team (Late st Contact Info) Description 10/24/2013 PracPart Note [facility] Slnc, Historical Social History Tobacco Use Types Packs/Day Years Used Date Smoking Tobacco: Never Assessed Comments Unknown Sex and Gender Information Value Date Recorded Sex Assigned at Not on file Legal Sex Female 4:24 PM RETIREMENT SALES CONSULTANT Gender Identity Not on file Sexual Orientation Not on file documented as of this encounter Progress Notes * Slnc, Historical - 10/24/2013 3:05 PM CST . : 03:05pm .T: Wait list letter [facility] Tesha Polo M.D. [address] [place] [address] Iggy Polo M.D. [address] [place] [address] [place] [address] Jayla Munoz M.D. Mary Arellano D.O. [address] Hamilton Kilpatrick M.D. [address] [place] [address] [place] [address] Tiffanie Dyer M.D. Peter Morales D.O. Derrek Del Rio M.D. PH: [phone] [facility] Jaziel Butler M.D., Ph.D. Abdullahi Nava M.D. Danilo Berumen M.D. 10/24/13 Jojo Shook [facility] [place] [address] Dear Jojo Shook, We are writing to remind you that it is time to make your follow up appointment. At the time you were in the office our schedule was not available or you asked us to remind you later to schedule thisappointment. We attempted to call you, but you were unavailable. Please contact our office at [phone] and follow the prompts to schedule your appointment with Narayan Mejias. Thank you in advance for your attention in this matter. This will serve as the only reminder to schedule this appointment. Sincerely, Scheduling Department documented in this encounter Plan of Treatment Not on file documented as of this encounter Visit Diagnoses Not on filedocumented in this encounter Care Teams Ornamental Plaster Sticker Relationship Specialty Start Date End Date Iggy Grover MD PCP - General 11/20/14 documented as of this encounter
--- OUTSIDE RECORDS SUMMARY | 2025-02-21 05:43 | XMS_ITS | Encounter Summary ---
Author Organization [facility] Address [address] [place] [address] Care Team Providers Care Barker Operator Name Role Phone Iggy Grover MD Primary Care Provider Kathy addison Encounter Details Date Type Department Care Team (Late st Contact Info) Description 05/11/2013 PracPart Note [facility] Slnc, Historical Social History Tobacco Use Types Packs/Day Years Used Date Smoking Tobacco: Never Assessed Comments Unknown Sex and Gender Information Value Date Recorded Sex Assigned at Not on file Legal Sex Female 4:24 PM REFINERY OPERATOR POLYMERIZATION PLANT Gender Identity Not on file Sexual Orientation Not on file documented as of this encounter Progress Notes * Slnc, Historical - 05/11/2013 4:00 PM CDT . : 04:00pm Hypertension: yes mom High Cholesterol: yes mom Coronary heart disease: no Diabetes mellitus: no Migraines: yes daughter and self CVD / Stroke: yes mother Cancer: yes father Alcholism: no Epilepsy: no Multiple Sclerosis: no Alzheimers: no Parkinson Disease: no Mental illness: yes dads sisters, nieces and nephews Other: no documented in this encounter Plan of Treatment Not on file documented as of this encounter Visit Diagnoses Not on filedocumented in this encounter Care Teams Barker Operator Relationship Specialty Start Date End Date Iggy Grover MD PCP - General 11/20/14 documented as of this encounter
--- OUTSIDE RECORDS SUMMARY | 2025-02-21 05:43 | XMS_ITS | Encounter Summary ---
Author Organization [facility] Address [address] [place] [address] Care Team Providers Care City Supervisor Name Role Phone Yina Putnam MD Primary Care Provider [phone] Yina Putnam MD Unavailable [phone] Teofilo Campbell DO Unavailable [phone] Encounter Details Date Type Department Care Team (Late st Contact Info) Description 06/17/2022 Telephone Interventional Radiology: [facility] [place] [address] [facility]. [address], [address] [place] [address] Delmy Pierce, RN Social History Tobacco Use Types Packs/Day Years Used Date Smoking Tobacco: Former Cigarettes 0.3 20 2 002 - 2021 Smokeless Tobacco: Never Alcohol Use Standard Drinks/Week Comments Yes 6 (1 standard drink = 0.6 oz pur e alcohol) PHQ-2 Answer Date Recorded PHQ-2 Score 0 04/13/2022 Social Connections Answer Date Recorded Do you often feel that you lack companionship? Y es 06/22/2021 Alcohol Use Answer Date Recorded Alcohol Use Yes 02/17/2022 Male: 9+ ounces (15+ Standard Drinks) per week T hreshold Not on file 02/17/2022 Female: 4.8+ ounces (8+ Standard Drinks) per wee k Threshold 3.6 02/17/2022 Financial Resource Strain Answer Date R ecorded In the last 12 months, has y our [employer] company shut off your service for not paying your bills? No 06/22/2021 Do problems getting childcar e make it difficult to work or study? No 06/22/2021 In the last 12 months, have you needed to see a doctor, but could not because of cost? No 06/22/2021 In the last 12 months, did you skip medications to save money? No 06/22/2021 Transportation Needs Answer Date Record ed In the past 12 months, have you ever gone without health care because you didn't have a way to get there? No 06/22/2021 Housing Stability Answer Date Recorded Are you worried that in the next 2 months, you may not have stable housing? No 06/22/2021 Health Literacy Answer Date Recorded Do you have problems underst anding what is told to you about your medical conditions? Yes 06/22/2021 Education Answer Date Recorded What is the [...] file Not on file Not on file COVID-19 Exposure Response Date Recorded In the last 10 days, have emma u been in contact with someone who was confirmed or suspected to have Coronavirus/COVID-19? No / Unsure 05/25/2022 8:27 AM CDT documented as of this encounter Functional Status * Does the patient have a hearing impairment: Answer Date of Assessment Author No 04/13/2022 10:54 AM CDT Key Baxter * Does the patient have a visual impairment: Answer Date of Assessment Author Yes 04/13/2022 10:54 AM CDT Key Baxter * Does the patient have impaired ambulation: [...] Entry Date Author Yes 06/19/2021 10:25 AM AYALAT Priyanka Rothman RN documented in this encounter Progress Notes * Delmy Pierce RN - 06/17/2022 4:08 PM CDT Interventional Radiology Progress Note Message received to inquire If patient can discontinue her ASA. Per Dr. Quiroz ok to d/c ASA at this time. No need to resume from IR perspective. Delmy Pierce RN documented in this encounter Plan of [...] Date Last Indicated Resolved Time Covid-19 Rule-Out 06/22/2023 06/23/2023 06/23/2023 1:51 AM CDT Flu/RSV Rule-Out 06/22/2023 06/23/2023 06/23/2023 1:51 AM CDT Covid-19 Rule-Out 09/06/2024 09/06/2024 09/06/2024 8:29 AM TUG HAND Flu/RSV Rule-Out 09/06/2024 09/06/2024 09/06/2024 8:29 AM TUG HAND Covid-19 Rule-Out 09/18/2024 09/18/2024 09/18/2024 2:11 AM TUG HAND Flu/RSV Rule-Out 09/18/2024 09/18/2024 09/18/2024 2:11 AM TUG HAND Assessment Noted Time PHQ-9 Depression Total Score: 3 02/18/20 11:16 AM CDT A fall risk assessment has been complete d for the patient 04/13/2022 10:54 AM CDT A Body Mass Index follow-up plan has been documented for the patient 08/06/2019 7:29 AM TUG HAND PHQ-2 Depression Total Score: 0 04/13/20 10:54 AM CDT documented as of this encounter Care Teams City Supervisor Relationship Specialty Start Date End Date Yina Putnam MD [address] [place] [address] PCP - General Family Medicine 08/02/19 Yina Putnam MD [address] [place] [address] CCP - Continuity of Care Provider Family Medicine 08/02/19 Teofilo Campbell DO [address] [place] [address] Neurology 08/28/21 documented as of this encounter
--- OUTSIDE RECORDS SUMMARY | 2025-02-21 05:43 | XMS_ITS | Encounter Summary ---
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 : 03:54pm PATIENT NAME: Jojo Shook DATE OF : [birth year] AGE: 62 year DATE: 05/11/13 REFERRING PHYSICIAN: Iggy Jurado REASON FOR VISIT : memory loss, cannot focus, sharp pain in head, sleep 3-4 hours night dizzie, balance off on walking DRUG ALLERGIES: Aspirin: yes Codeine: no Iodine other Dyes: no Penicillin: no Sulfa : no Other : yes tetracycline PAST MEDICAL HISTORY: None of these apply no ARTHRITIS: no BLADDER PROBLEMS: yes SEIZURES : no EYE PROBLEMS: yes AFIB/VALVE: no STOMACH ULCERS/GASTRITIS/GERD: no BLACKOUTS: yes THYROID : no COLON/IRRITABLE BOWEL : no DIABETES MELLITUS: no STROKE OR TIA: no DEPRESSION/ANXIETY/BIPOLAR: yes ANEMIA/BLOOD PROBLEMS: no CANCER: no HIGH BLOOD PRESSURE: yes HEART DISEASE/CORONARY DISEASE: no INTESTINAL PROBLEMS: no LIVER PROBLEMS: no LUNG DISEASE/COPD/ASTHMA: no HEADACHES MIGRAINE/TENSION: yes HIGH LIPIDS OR CHOLESTEROL : yes KIDNEY PROBLEMS: no LIST ALL MAJOR SURGERIES, HOSPITALIZATIONS, OR ACCIDENTS: Review of Systems General Fever no Sweats no Weakness no Fatigue no Weight Loss yes Pain Average pain most days 4 Where does hurt? Staying the same or getting worse? Same What do you take for the pain? Does it help? no Skin None of these apply yes Excessive sun exposure no Blistering/Flores no Use Sunscreen no Dark Pigmented Skin Lesions no Removed Melanoma no Bleeding skin lesion no Skin Cancer no Psoriasis no Chronic Rash no Vitiligo no Joshua no Family member with nevus syndrome no Eyes / Ears / Sinuses None of these apply no Loss of vision no Wear Glass yes Cataracts no Glaucoma no Loss of hearing no Ringing in your ears yes Sinus trouble yes Nosebleeds no Mouth / Neck None of these apply no Dental problems no Wear Dentures yes Swollen glands no Laryngitis no Hoarseness no Lungs None of these apply no Cough every day no Cough, produce sputum most days no Blood in your sputum no Pneumonia no Bronchitis no Emphysema no Pleurisy no Tuberculosis no Asthma no Short of breath w/activity yes Short of breath at rest no Frequent colds no Heart / Blood Vessels None of these apply no Chest pain (angina) yes Chest pressure no Heart attack no Short of breath at night no Heart murmur no Rapid heartbeat that required treatment no Swollen ankles no Leg cramps at night no Leg cramps when walking no Rheumatic fever no Congenital heart disease no Gastrointestinal None of these apply no Loss appetite no Recent weight change no Excess saliva yes Swallowing Problems no Heartburn no Ulcer no Endoscopy no Nausea Vomiting no Vomiting Blood no Diarrhea no Upset Stomach no Constipation no Black BowelMovements no Bloody bowel movements no Yellow or jaundiced no Hepatitis no Gall bladder problems no Cirrhosis no Neurological and Spine Back None of these apply no Dominant Left Hand no Dominant Right Hand no Headaches no Seizure no Double Vision yes Blurred Vision yes Weakness in extremity no Numbness no Stroke no Migraine Headaches no Forgetfulness yes Confusion yes Arthritis no Back Pain no Broken Bones no Swollen Joints no Endocrine / Glands None of these apply yes Diabetes Mellitus no Thyroid Disease no Other Endocrine/Gland Conditions no 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 GI Patient Signature Date documented in this encounter Plan of Treatment Not on file documented as of this encounter Visit Diagnoses Not on filedocumented in this encounter Care Teams Vending Machine Refiller Relationship Specialty Start Date End Date Iggy Grover MD PCP - General 11/20/14 documented as of this encounter
--- OUTSIDE RECORDS SUMMARY | 2025-02-21 05:43 | XMS_ITS | Encounter Summary ---
Author Organization [facility] Address [address] [place] [address] Care Team Providers Care Supervisor Plating And Point Assembly Name Role Phone Iggy Grover MD Primary Care Provider Kathy addison Encounter Details Date Type Department Care Team (Late st Contact Info) Description 04/24/2013 All[facility] Note [facility] [place] [address] [facility] [address] [place] [address] Iggy Grover MD No Forwarding Address Social History Tobacco Use Types Packs/Day Years Used Date Smoking Tobacco: Never Assessed Comments Unknown Sex and Gender Information Value Date Recorded Sex Assigned at Not on file 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5 Platelet Count 251 TH/uL 140-400 Mean Platelet Volume 11.8 fL 9.4-12.3 % Segmented Neutrophils, Auto 59 % 45-78 % Lymphocytes, Auto 30 % 15-47 % Monocytes, Auto 9 % 0-12 % Eosinophils, Auto 2 % 0-7 % Basophils, Auto 1 % 0-2 # Grans 2.77 TH/uL 1.70-6.80 # Lymphs 1.43 TH/uL 1.00-3.30 # Monos 0.40 TH/uL 0.20-0.90 # Eos 0.07 TH/uL 0.00-0.40 # Basos 0.03 TH/uL 0.00-0.10 Glucose 82 mg/dL 70-100 Thyroid Stimulating Hormone 0.69 uIU/mL 0.47-4.68 Lipid Profile Hours Post Prandial 9 Cholesterol Lipid Prof 190 mg/dL 100-200 Triglycerides 82 mg/dL 0-150 Hdl 78 mg/dL 40-110 Ldl Cholesterol 96 mg/dL 0-99 Total Cholesterol/Hdl Ratio 2.4 0.0-4.5 Non- HDL Cholesterol 112 mg/dL 0-130 Comprehensive Metabolic Sodium 144 MEQ/L 133-147 Potassium 3.9 MEQ/L 3.5-5.3 Potassium reference interval changed on 01/17/2013.^^ Chloride 104 MEQ/L 96-112 Carbon Dioxide 27 MEQ/L 20-30 Anion Gap 13 5-17 Calcium 10.2 mg/dL 8.4-10.2 Protein Total Serum 7.5 g/dL 6.0-8.2 Albumin 4.6 g/dL 3.5-5.0 Alkaline Phosphatase 97 IU/L 42-140 Alanine Aminotransferase 26 IU/L 13-69 Aspartate Aminotransferase 23 IU/L 15-46 Bilirubin Total 0.8 mg/dL 0.2-1.3 Blood Urea Nitrogen 9 mg/dL 7-26 Creatinine 0.7 mg/dL 0.4-1.1 Gfrf Aa 102 Chronic Kidney Disease less than 60 mL/min/1.73 sq.m^^ Kidney failure less than 15 mL/min/1.73 sq.m^^ Gfrf Non Aa 85 Chronic Kidney Disease less than 60 mL/min/1.73 sq.m^^ Kidney failure less than 15 mL/min/1.73 sq.m^^ T4 Free 1.5 ng/dL 0.8-2.2 Urinalysis And Microscopic Appearance, Urine Yellow Bilirubin, Urine Negative Negative Ketones, Urine Negative mg/dL Negative Specific [place] 1.006 1.001-1.030 Hemoglobin, Urine Negative Negative Urine Protein, Qualitative Negative mg/dL Negative Urobilinogen, Urine Negative EU/dL Negative Leukocyte Negative Negative Epithelial Cells Absent Absent Microscopic Wbc, Urine 1 - 5 1 - 5 Glucose Urine Negative mg/dL Negative Microscopic Rbc, Urine 1 - 5 1 - 5 Bacteria Large A Absent Hyaline Cast Absent Absent Ph, Urine 6.5 5.0-8.0 Collected/Examined: Apr 20, 2013 12:00AM MW MAMMO SCREEN DIG WITH CAD REPORT [facility] [address] [place] [address] Patient: Jojo Shook Date of : 1950 Referring Physician: Iggy Grover MD cc: Exam Date: 04/20/2013 Exam Procedure: Digital Screening Mamm w/cad - bilateral REASON FOR EXAM / PATIENT HISTORY Patient is 62 years old and is seen for screening. The following views were obtained: bilateral CC and bilateral MLO. FILM COMPARISON The present examination has been compared to prior imaging studies performed at [facility] on 01/27/2007, and at [facility] on 04/12/2012. MAMMOGRAM CAD-analysis was used in the interpretation of this study. There are scattered fibroglandular densities. There are no suspicious masses, areas of architectural distortion or malignant appearing calcifications identified. IMPRESSION No mammographic evidence of malignancy. Routine follow-up mammogram in 1 year is recommended. Patient will receive a reminder letter. BI-RADS CATEGORY 1: Negative Reading Site: [facility] Ariadne Wakefield MD Electronically Signed: 04/20/2013 at 12:41:55 PM Your patient will receive the results of this examination as outlined by the Mammography Quality Standards Act. Jojo Shook, [id number] [address] [place] [address] [facility] [address] [place], [place] [id number] Jojo Shook, [id number] 1950 2 [address] Jojo Shook, [id number] [address] [place], [place] [id number] * Miscellaneous - Iggy Grover MD - 04/24/2013 7:55 AM CDT Verified Results Collected/Examined: Apr 20, 2013 8:19AM Test Result Flag Acceptable CBC with Diff WHITE BLOOD CELL COUNT 4.70 TH/uL 4.00-11.00 Red Blood Cell Count 5.06 MIL/uL H 4.00-5.00 Hemoglobin 14.1 g/dL 12.0-15.0 Hematocrit 40 % 36-45 Mean Corpuscular Volume 79 fL L 80-99 Mean Corpuscular Hgb 28 pg 27-34 Mean Corpuscular Hgb Conc 35 % 32-36 Red Cell Distribution Width 14.7 % H 9.0-14.5 Platelet Count 251 TH/uL 140-400 Mean Platelet Volume 11.8 fL 9.4-12.3 % Segmented Neutrophils, Auto 59 % 45-78 % Lymphocytes, Auto 30 % 15-47 % Monocytes, Auto 9 % 0-12 % Eosinophils, Auto 2 % 0-7 % Basophils, Auto 1 % 0-2 # Grans 2.77 TH/uL 1.70-6.80 # Lymphs 1.43 TH/uL 1.00-3.30 # Monos 0.40 TH/uL 0.20-0.90 # Eos 0.07 TH/uL 0.00-0.40 # Basos 0.03 TH/uL 0.00-0.10 Glucose 82 mg/dL 70-100 Thyroid Stimulating Hormone 0.69 uIU/mL 0.47-4.68 Lipid Profile Hours Post Prandial 9 Cholesterol Lipid Prof 190 mg/dL 100-200 Triglycerides 82 mg/dL 0-150 Hdl 78 mg/dL 40-110 Ldl Cholesterol 96 mg/dL 0-99 Total Cholesterol/Hdl Ratio 2.4 0.0-4.5 Non- HDL Cholesterol 112 mg/dL 0-130 Comprehensive Metabolic Sodium 144 MEQ/L 133-147 Potassium 3.9 MEQ/L 3.5-5.3 Potassium reference interval changed on 01/17/2013.^^ Chloride 104 MEQ/L 96-112 Carbon Dioxide 27 MEQ/L 20-30 Anion Gap 13 5-17 Calcium 10.2 mg/dL 8.4-10.2 Protein Total Serum 7.5 g/dL 6.0-8.2 Albumin 4.6 g/dL 3.5-5.0 Alkaline Phosphatase 97 IU/L 42-140 Alanine Aminotransferase 26 IU/L 13-69 Aspartate Aminotransferase 23 IU/L 15-46 Bilirubin Total 0.8 mg/dL 0.2-1.3 Blood Urea Nitrogen 9 mg/dL 7-26 Creatinine 0.7 mg/dL 0.4-1.1 Gfrf Aa 102 Chronic Kidney Disease less than 60 mL/min/1.73 sq.m^^ Kidney failure less than 15 mL/min/1.73 sq.m^^ Gfrf Non Aa 85 Chronic Kidney Disease less than 60 mL/min/1.73 sq.m^^ Kidney failure less than 15 mL/min/1.73 sq.m^^ T4 Free 1.5 ng/dL 0.8-2.2 Urinalysis And Microscopic Appearance, Urine Yellow Bilirubin, Urine Negative Negative Ketones, Urine Negative mg/dL Negative Specific [place] 1.006 1.001-1.030 Hemoglobin, Urine Negative Negative Urine Protein, Qualitative Negative mg/dL Negative Urobilinogen, Urine Negative EU/dL Negative Leukocyte Negative Negative Epithelial Cells Absent Absent Microscopic Wbc, Urine 1 - 5 1 - 5 Glucose Urine Negative mg/dL Negative Microscopic Rbc, Urine 1 - 5 1 - 5 Bacteria Large A Absent Hyaline Cast Absent Absent Ph, Urine 6.5 5.0-8.0 Collected/Examined: Apr 20, 2013 12:00AM MW MAMMO SCREEN DIG WITH CAD REPORT [facility] [address] [place] [address] [id number] Date of : 1950 Referring Physician: Iggy Grover MD cc: Exam Date: 04/20/2013 Exam Procedure: Digital Screening Mamm w/cad - bilateral REASON FOR EXAM / PATIENT HISTORY Patient is 62 years old and is seen for screening. The following views were obtained: bilateral CC and bilateral MLO. FILM COMPARISON The present examination has been compared to prior imaging studies performed at [facility] on 01/27/2007, and at [facility] on 04/12/2012. MAMMOGRAM CAD-analysis was used in the interpretation of this study. There are scattered fibroglandular densities. There are no suspicious masses, areas of architectural distortion or malignant appearing calcifications identified. IMPRESSION No mammographic evidence of malignancy. Routine follow-up mammogram in 1 year is recommended. Patient will receive a reminder letter. BI-RADS CATEGORY 1: Negative Reading Site: [facility] Ariadne Wakefield MD Electronically Signed: 04/20/2013 at 12:41:55 PM Your patient will receive the results of this examination as outlined by the Mammography Quality Standards Act. Jojo Shook [id number] [address] [place] [address] [facility] [address] [place], [place] [address] [phone] Jojo Shook [id number] 1950 2 Page [address]li Jojo Shook [id number] [address] [place] [address] documented in this encounter Plan of Treatment Not on file documented as of this encounter Visit Diagnoses Not on filedocumented in this encounter Care Teams Supervisor Plating And Point Assembly Relationship Specialty Start Date End Date Iggy Grover MD PCP - General 11/20/14 documented as of this encounter
--- OUTSIDE RECORDS SUMMARY | 2025-02-21 05:43 | XMS_ITS | Encounter Summary ---
Author Organization [facility] Address [address] [place] [address] Care Team Providers Care Supervisor Cigar Making Machine Name Role Phone Iggy Grover MD Primary Care Provider Kathy addison Encounter Details Date Type Department Care Team (Late st Contact Info) Description 09/11/2012 [facility] - Hist Visit [facility] ProviderKirby MD Social History Tobacco Use Types Packs/Day Years Used Date Smoking Tobacco: Never Assessed Comments Unknown Sex and Gender Information Value Date Recorded Sex Assigned at Not on file 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 Maximum heart rate:91. Minimum heart rate: 50. Average heart rate: 69. Predominant Rhythm: sinus A V Conduction: normal Pauses: None Supraventricular arrhythmias: APC - moderate (30-100/hour) Ventricular Arrhythmias: Average number of PVC: 1 - occasional (1-30/hour) Multiform Repetitive Forms: 2 Couplets: 0 Triplets: 0 Number of beats: 4 Maximum beats per minute: 1 Symptoms: multiple symptons, rare correlations Conclusions: Moderate concentration of supraventricular ectopic activity. Occasional ventricular ectopic activity. 8 episodes of palpitations/chest pain with one correlating with an APC. Sincerely, Tristan Orlando M.D. documented in this encounter Plan of Treatment Not on file documented as of this encounter Visit Diagnoses Not on filedocumented in this encounter Care Teams Supervisor Cigar Making Machine Relationship Specialty Start Date End Date Iggy Grover MD PCP - General 11/20/14 documented as of this encounter
--- OUTSIDE RECORDS SUMMARY | 2025-02-21 05:43 | XMS_ITS | Encounter Summary ---
Author Organization [facility] Address [address] [place] [address] Care Team Providers Care Didactic Instructor Name Role Phone Iggy Webb MD Primary Care Provider Kathy addison Encounter Details Date Type Department Care Team (Late st Contact Info) Description 05/22/2013 Allscripts Note [facility] Primary Care - [place] [address] [address] Iggy Webb MD No Forwarding Address Social History Tobacco Use Types Packs/Day Years Used Date Smoking Tobacco: Never Assessed Comments Unknown Sex and Gender Information Value Date Recorded Sex Assigned at Not on file 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 Gender Identity Not on file Sexual Orientation Not on file documented as of this encounter Miscellaneous Notes * Miscellaneous - Iggy Webb MD - 05/22/2013 2:27 PM CDT Verified Results Collected/Examined: May 21, 2013 12:25PM MRI HEAD W WO CONTRAST Patient: SALMA SHOOK Phone #: Card Capture Services Rec#: [id number] Sex: F : 1950 Erika#: [id number] Location: Check-in#: [id number] Procedure Requested: [id number] MRI HEAD W WO CONTRAST Reason For Exam: 780.93 MEMORY LOSS Exam Ordered: 05/21/2013 1207 Exam Date/Time: 05/21/2013 1310 Check-in Date/Time: 05/21/2013 1657 Attendin IGGY WEBB Requestin IGGY WEBB Referrin NO, REFERRING DR Primary Care: [id number] IGGY WEBB MD EXAMINATION: Magnetic resonance imaging (MRI) of the brain and brainstem without and with contrast Date: May 21, 2013 12:33:15 PM History: MEMORY LOSS. Technique: Multiplanar, multisequences were performed as part of a general brain protocol. Contrast information: 12 mL Omni scan Comparison: None available. Findings: Diffusion weighted images reveal no hyperintensities to suggest acute cerebral infarction. The susceptibility weighted sequences reveal no evidence of acute or chronic hemorrhage. The ventricles are normal in size and position without evidence of hydrocephalus. Mild age-appropriate cerebral atrophy. . The axial FLAIR images revealed mild scattered bihemispheric periventricular and punctate deep white matter hyperintensities, nonspecific. There are no areas of abnormal contrast enhancement. On the sagittal images, the scalp and calvarium are normal. The superior sagittal sinus demonstrates normal venous flow. The corpus callosum is normal in shape and signal intensity. The pituitary and sella are normal. The upper cervical spinal cord and spine are normal. Left maxillary mucous retention cyst. The visualized portions of the orbits and mastoids are unremarkable. Normal flow voids are demonstrated in the carotid arteries and basilar artery. IMPRESSION: 1. No MR evidence of acute infarction or hemorrhage. No abnormal contrast enhancement. 2. Mild age-appropriate cerebral atrophy. 3. Mild in severity periventricular and deep white matter FLAIR hyperintensities are nonspecific but likely associated with chronic small vessel ischemic disease. ATTESTATION STATEMENT: The staff radiologist has personally reviewed the images and dictated, reviewed or edited the final report. READING SITE: [facility]. Signed (Authenticated, Released) Date-Time: 05/21/2013 1833 Cement Conveyor Operator- GO BARCENAS M.D., Staff Radiologist Dictated By- MORRIS LUKE M.D., Resident Staff Physician- GO BARCENAS M.D., Staff Radiologist Authenticated By- GO BARCENAS M.D., Staff Radiologist [id number]^SWAPNA&GO&Staff Discussion/Summary Ms. Shook - MRI does not show any significant abnormality. Chele Webb * Miscellaneous - Iggy Webb MD - 05/22/2013 2:27 PM CDT Verified Results Collected/Examined: May 21, 2013 12:25PM MRI HEAD W WO CONTRAST Patient: SALMA SHOOK Phone #: Card Capture Services Rec#: [id number] Sex: F : 1950 Erika#: [id number] Location: Check-in#: [id number] Procedure Requested: [id number] MRI HEAD W WO CONTRAST Reason For Exam: 780.93 MEMORY LOSS Exam Ordered: 05/21/2013 1207 Exam Date/Time: 05/21/2013 1310 Check-in Date/Time: 05/21/2013 1653 Attendin IGGY WEBB Requestin GIGY WEBB Referrin NO, REFERRING DR Primary Care: [id number] IGGY WEBB MD EXAMINATION: Magnetic resonance imaging (MRI) of the brain and brainstem without and with contrast Date: May 21, 2013 12:33:15 PM History: MEMORY LOSS. Technique: Multiplanar, multisequences were performed as part of a general brain protocol. Contrast information: 12 mL Omni scan Comparison: None available. Findings: Diffusion weighted images reveal no hyperintensities to suggest acute cerebral infarction. The susceptibility weighted sequences reveal no evidence of acute or chronic hemorrhage. The ventricles are normal in size and position without evidence of hydrocephalus. Mild age-appropriate cerebral atrophy. . The axial FLAIR images revealed mild scattered bihemispheric periventricular and punctate deep white matter hyperintensities, nonspecific. There are no areas of abnormal contrast enhancement. On the sagittal images, the scalp and calvarium are normal. The superior sagittal sinus demonstrates normal venous flow. The corpus callosum is normal in shape and signal intensity. The pituitary and sella are normal. The upper cervical spinal cord and spine are normal. Left maxillary mucous retention cyst. The visualized portions of the orbits and mastoids are unremarkable. Normal flow voids are demonstrated in the carotid arteries and basilar artery. IMPRESSION: 1. No MR evidence of acute infarction or hemorrhage. No abnormal contrast enhancement. 2. Mild age-appropriate cerebral atrophy. 3. Mild in severity periventricular and deep white matter FLAIR hyperintensities are nonspecific but likely associated with chronic small vessel ischemic disease. ATTESTATION STATEMENT: The staff radiologist has personally reviewed the images and dictated, reviewed or edited the final report. READING SITE: [facility]. Signed (Authenticated, Released) Date-Time: 05/21/2013 183 Cement Conveyor Operator- GO BARCENAS M.D., Staff Radiologist Dictated By- MORRIS LUKE M.D., Resident Staff Physician- GO BARCENAS M.D., Staff Radiologist Authenticated By- GO BARCENAS M.D., Staff Radiologist [id number]^SWAPNA&GO&Staff Discussion/Summary Ms. Shook - MRI does not show any significant abnormality. Chele Webb documented in this encounter Plan of Treatment Not on file documented as of this encounter Visit Diagnoses Not on filedocumented in this encounter Care Teams Didactic Instructor Relationship Specialty Start Date End Date Iggy Webb MD PCP - General 11/20/14 documented as of this encounter
--- OUTSIDE RECORDS SUMMARY | 2025-02-21 05:43 | XMS_ITS | Encounter Summary ---
Author Organization [facility] Address [address] [place] [address] Care Team Providers Care Rectifying Operator Name Role Phone Iggy Grover MD Primary Care Provider Kathy addison Encounter Details Date Type Department Care Team (Late st Contact Info) Description 09/12/2012 Allscripts Note [facility] Primary Care - [place] [address] [facility] [address] [place] [address] Iggy Grover MD No Forwarding Address Social History Tobacco Use Types Packs/Day Years Used Date Smoking Tobacco: Never Assessed Comments Unknown Sex and Gender Information Value Date Recorded Sex Assigned at Not on file 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 Shook- Cholesterol dramatically improved with med. Continue your current regimen. Chele Grover UTIVE CHEF * Miscellaneous - Iggy Grover MD - 09/12/2012 10:30 AM CST Verified Results Collected/Examined: Sep 11, 2012 8:02AM Test Result Flag Acceptable Lipid Profile Hours Post Prandial 10 Cholesterol Lipid Prof 181 mg/dL 100-200 Triglycerides 57 mg/dL 0-150 Hdl 70 mg/dL 40-110 Ldl Cholesterol 100 mg/dL H 0-99 Total Cholesterol/Hdl Ratio 2.6 0.0-4.5 Non- HDL Cholesterol 111 mg/dL 0-130 Alanine Aminotransferase 27 IU/L - Discussion/Summary Ms. Shook- Cholesterol dramatically improved with med. Continue your current regimen. Chele Grover UTIVE CHEF documented in this encounter Plan of Treatment Not on file documented as of this encounter Visit Diagnoses Not on filedocumented in this encounter Care Teams Rectifying Operator Relationship Specialty Start Date End Date Iggy Grover MD PCP - General 11/20/14 documented as of this encounter
--- OUTSIDE RECORDS SUMMARY | 2025-02-21 05:43 | XMS_ITS | Encounter Summary ---
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 : 12:33pm .T: sleep study report 06.12.13 .PV: [facility] ?INVALID LINK:[email or web address] Indexed by Carlos Barba date: Wednesday, June 12, 2013 at 12:33:44 PM Polysomnography from May 26, 2013 showed sleep disordered breathing with an AHI of 8. The keysha of oxygen saturation was 82%. Snoring was present. The study was reported as being consistent with mild obstructive sleep apnea. Positive pressure therapy was not started due to and sufficient time toinitiate and titrate therapy. Treatment considerations include CPAP therapy, oral appliance, or surgery. The periodic limb movement index (PL and Peter's menses with one event per hour of sleep. # SIGNED BY Narayan Mejias ([facility]) 07/05/2013 05:07PM UCTION OPERATOR documented in this encounter Plan of Treatment Not on file documented as of this encounter Visit Diagnoses Not on filedocumented in this encounter Care Teams Tube Buffer Relationship Specialty Start Date End Date Iggy Grover MD PCP - General 11/20/14 documented as of this encounter
--- OUTSIDE RECORDS SUMMARY | 2025-02-21 05:43 | XMS_ITS | Encounter Summary ---
Author Organization [facility] Address [address] [place] [address] Care Team Providers Care Meat Stuffer Name Role Phone Yina Putnam MD Primary Care Provider [phone] Yina Putnam MD Unavailable [phone] Teofilo Campbell DO Unavailable [phone] Encounter Details Date Type Department Care Team (Late st Contact Info) Description 04/11/2024 Pre[facility]Post [facility] [address] [facility], [address] [place] [address] Keely Horner, MATTHIAS Social History Tobacco Use Types Packs/Day Years Used Date Smoking Tobacco: Some Days Cigarettes 0.3 20 Started: 2001; Last attempted to quit: 2021 Smokeless Tobacco: Never Alcohol Use Standard Drinks/Week Comments Yes 6 (1 standard drink = 0.6 oz pur e alcohol) PHQ-2 Answer Date Recorded PHQ-2 Score 0 01/06/2024 Social Connections Answer Date Recorded Do you [...] the last 12 months, has y our [employer] company shut off your service for not paying your bills? No 12/28/2023 Do problems getting childcar e make it difficult to work or study? No 12/28/2023 In the last 12 months, have you needed to see a doctor, but could not because of cost? Yes 12/28/2023 In the last 12 months, did you skip medications to save money? Yes 12/28/2023 Food Insecurity Answer Date Recorded Within the past 12 months we worried whether our food would run out before we got money to buy more. Often True 024 Within the past 12 months th e food we bought just didn't last and we didn't have money to get more. Sometimes True 12/28/2023 Transportation Needs Answer Date Record ed In the past 12 months, have you ever gone without health care because you didn't have a way to get there? Yes 12/28/2023 Housing Stability Answer Date Recorded Are you worried that in the next 2 months, you may not have stable housing? No 12/28/2023 Health Literacy Answer Date Recorded Do you [...] impairment: Answer Date of Assessment Author No 03/04/2024 6:57 PM CDT Desiree Anthony RN * Does the patient have a visual impairment: Answer Date of Assessment Author Yes 01/06/2024 9:32 AM CDT Do edwardo Quintana * Does the patient have impaired ambulation: Answer Date of Assessment Author No 06/19/2021 10:25 AM CDT Priyanka Rothman RN * Does the patient have an activity of daily living (ADL) impairment: Answer Date of Assessment Author No 06/19/2021 10:25 AM Priyanka Marcelino RN * Does the patient have an instrumental activity of daily living (IADL) impairment: Answer Date of Assessment Author Yes 06/19/2021 10:25 AM CDT Priyanka Rothman RN documented as of this encounter Mental Status * Does the patient have a cognitive impairment: Answer Entry Date Author Yes 06/19/2021 10:25 AM AYALAT Priyanka Rothman RN documented in this encounter Progress Notes * Keely Horner RN - 04/11/2024 1:59 PM CDT Interventional Radiology Progress Note Dear Jojo We have attempted to reach you to have you reschedule your MRA head. Please call [phone] to get that scheduled. Once it is completed we will have Dr Quiroz review it and call you with the results. Thanks Keely Horner RN Letter mailed 04/11/24 documented in this encounter Plan of Treatment [...] Date Last Indicated Resolved Time Covid-19 Rule-Out 09/06/2024 09/06/2024 09/06/2024 8:29 AM EGGS INSPECTOR Flu/RSV Rule-Out 09/06/2024 09/06/2024 09/06/2024 8:29 AM EGGS INSPECTOR Covid-19 Rule-Out 09/18/2024 09/18/2024 09/18/2024 2:11 AM EGGS INSPECTOR Flu/RSV Rule-Out 09/18/2024 09/18/2024 09/18/2024 2:11 AM EGGS INSPECTOR Assessment Noted Time PHQ-9 Depression Total Score: 3 02/18/20 11:16 AM CDT A fall risk assessment has been complete d for the patient 01/06/2024 9:32 AM CDT A Body Mass Index follow-up plan has been documented for the patient 08/06/2019 7:29 AM EGGS INSPECTOR PHQ-2 Depression Total Score: 0 01/06/20 9:32 AM CDT documented as of this encounter Care Teams Meat Stuffer Relationship Specialty Start Date End Date Yina Putnam MD [address] [place] [address] PCP - General Family Medicine 08/02/19 Yina Putnam MD [address] [place] [address] CCP - Continuity of Care Provider Family Medicine 08/02/19 Teofilo Campbell DO [address] [place], [place] [id number] Neurology 08/28/21 documented as of this encounter
--- OUTSIDE RECORDS SUMMARY | 2025-02-21 05:43 | XMS_ITS | Clinical Summary ---
Author Organization [facility] Address [address] [place] [address] Care Team Providers Care Chute Loader Name Role Phone Yina Putnam MD Primary Care Provider [phone] Yina Putnam MD Unavailable [phone] Teofilo Campbell DO Unavailable [phone] Source Comments Some departments are not documenting in the electronic medical record. If you do not see the information that you expected, contact Release of Information in the Health Information Management department at [phone] for further assistance in locating additional records.[facility] Allergies Active Allergy Reactions Criticality Noted Date Comments Lisinopril ITCHING,COUGH Low 01/29/2020 Medications acetaminophen (TYLENOL) 325 mg tablet Take two tablets by mouth every 4 hours as needed. 0 06/12/20 21 Active Additional Information Patient taking differently: 325 mgOral EVERY 4 HOURS PRN,Pain, Informant: Self, Family Member, Reported on 10/09/2024 cyanocobalamin (vitamin B-12) (VITAMIN B-12) 1,000 mcg tabletIndications:p revention of vitamin B12 deficiency Take one tablet by mouth daily. Indications: prevention of vitamin B12 deficiency 90 tablet 12/23/19 24 Active atorvastatin (LIPITOR) 80 mg tablet Take one tablet by mouth daily. 30 tablet 09/04/19 25 Active CHOLEcalciferoL (vitamin D3) (OPTIMAL D3) 50,000 units capsule Take one capsule by mouth every 7 days. Take one capsule every . 12 capsule 09/04/19 25 Active hydroCHLOROthiazide 12.5 mg tabletIndications:h ypertension Take one tablet by mouth every morning. Indications: high blood pressure 10/15/19 25 Active jviiwrwb-qgtj-TH-ca lcium-mins (THERA-M) 9 mg iron-400 mcg tabletIndications:v itamin deficiency Take one tablet by mouth daily. Indications: vitamin deficiency 10/16/19 Active aspirin EC (ASPIR-LOW) 81 mg tabletIndications:c erebral thromboembolism prevention Take one tablet by mouth daily. Indications: prevention for a blood clot going to the brain 10/15/19 25 Active lidocaine (LIDODERM) 5 % topical patch Apply one patch topically to affected area every 24 hours as needed for Pain. Apply patch for 12 hours, then remove for 12 hours before repeating. 90 patch 11/16/19 25 Active divalproex (DEPAKOTE) 250 mg tablet,delayed releaseIndications: epilepsy Take one tablet by mouth twice daily. Take with food. Indications: epilepsy 180 tablet 3 11/24/19 25 Active levETIRAcetam (KEPPRA) 1,000 mg tabletIndications:p artial epilepsy treatment adjunct Take two tablets by mouth twice daily. 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 On evaluation, these symptoms appear to have resolved. No acute neurologic deficits or weakness noted on exam. Possible patient's reported falls are related to episodic seizures -Neurology consulted in the ED, suspect seizures as etiology of symptoms - Stroke activated, Stroke scale score was 14. - Head/Neck CT with no acute abnormalities, showed previous clipping of aneurysm, no carotid findings - S/P 2mg IV Midazolam upon arrival and loaded with 1500mg Keppra in ED PLAN: >Neurology recs - No further stroke workup up indicated as pt improved following midazolam - EEG ? - Brain MRI ? - CYLINDER DYER evaluation Left homonymous inferior quadrantanopia 05/02/20 Assessment & Plan (05/02/2024 10:21 AM CDT): This is the reason patient is sometimes not noticing things on her left side. Consistent with right occipital infarct. Explained to pt that this will not resolve, but should not worsen unless she has another stroke No evidence of diplopia on exam today Pt no longer having visual hallucinations Nuclear age-related cataract, both eyes 05/02/20 Assessment & Plan (05/02/2024 10:22 AM CDT): The patient's cataracts are not yet causing sufficient limitation in activities of daily living to justify cataract surgery. Observe for now. Recently got new glasses Visual hallucinations 12/21/2023 Chronic left shoulder pain 08/10/2021 Mild cognitive impairment 07/18/2021 Assessment & Plan (06/24/2024 1:53 AM CDT): Neuropsych testing in 2020- Mild vascular cognitive impairment. - displayed deficits in visual recall and executive functioning >Continue CHAPTER RELATIONS ADMINISTRATOR Donepezil 2.5 mg qday Anemia 06/10/2021 History of spontaneous subar achnoid intracranial hemorrhage due to cerebral aneurysm 06/09/2021 Assessment & Plan (06/24/2024 1:53 AM CDT): S/p Coiling in 2020. Appears that only lasting deficit was left homonymous inferior quadrantanopia. Hemiparesis affecting left side as late effect o f stroke 05/22/2021 Chronic ischemic right AVIATION CONSULTANT stroke 08/22/2020 Overview (09/06/2024): right posterior Hyperlipidemia 04/19/2012 Overview (08/06/2019): Overview: ICD10 Assessment & Plan (06/24/2024 1:53 AM CDT): Last LDL 113 on 12/23/2023 >Increase atorvastatin to 80mg per cardiology recs Primary hypertension 10/13/2010 Assessment & Plan (06/24/2024 1:53 AM CDT): Well controlled outpatient >Continue CHAPTER RELATIONS ADMINISTRATOR amlodipine 10mg History of tobacco abuse Assessment & Plan (06/24/2024 1:53 AM CDT): Reportedly quit a number of years ago. Still uses nicotine replacement patches >CHAPTER RELATIONS ADMINISTRATOR Nicoderm 7mg/day patch CAD (coronary artery disease) HFrEF (heart failure with reduced ejection fract ion) Anticoagulated Overview (09/06/2024): Lulaquis Resolved Problems Problem Noted Date Diagnosed Date Resolved Date Breakthrough seizure 09/11/[address] segment elevation 06/24/2024 025 Assessment & Plan (06/24/2024 1:53 AM CDT): Trops 53 ->3413. Initial EKG with mild ST elevation in V5, repeat had ST segment elevation in EKG in V2, V4, V5. Patiet without cardiac symptoms. 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 - Treatment for ACS started in ED: Heparin drip without bolus, loaded with Aspirin 325 mg once rectally, metoprolol 5 mg IV once PLAN: >Cardiology consulted -Contact if patient develops chest pain/hemodynamic instability > Continue Heparin drip per protocol >Start Aspirin 81 mg qday & Atorvastatin 80mg qday >Trend troponins >Echocardiogram >IV metoprolol one time until she can take PO meds. Hypokalemia 06/24/2024 09/11/2024 Assessment & Plan (06/24/2024 1:53 AM CDT): 3.2 on admission. Received 40meq on admission >CTM with daily CMP, replete as needed. Type 1 - NSTEMI 06/24/2024 06/26/2024 Acute encephalopathy 12/20/2023 025 Subarachnoid hemorrhage 06/12/202105/23 Thrombocytopenia 06/10/2021 06/18/2021 Bradycardia 06/10/2021 09/06/2024 Benign paroxysmal positional vertigo due to bilateral vestibular disorder 01/01/2020 06/18/2021 Chest pain 06/11/2019 06/09/2021 Memory loss 07/05/2013 09/21/2022 Overview (02/17/2022): History of confusion since approximately 2018. On 06/09/21, she was hospitalized for a ruptured right posterior communicating artery aneurysm and she underwent intravascular coiling. Her memory changes were more pronounced after the aneurysm rupture and are slowly improving. Functioning is unaffected. Neuropsychological testing did not reveal evidence of a neurodegenerative process, but vascular changes were most likely contributing to her cognitive changes. Longitudinal follow-up is warranted. Neuropsychology Summary and Impression (refer to Neuropsychologist progress note for complete documentation of tests performed and results):Summary and Impression: Neurocognitive findings are notable for mild inefficiency in visual recall and executive functioning. All other abilities, including memory, are relatively normal considering her age, education, and other demographics. She endorses some depressive symptoms. She is functionally independent. This neurocognitive profile suggests mild nondominant involvement of the frontal lobe consistent with her history of aneurysm rupture/hemorrhagic stroke. There does not appear to be strong evidence for a neurodegenerative process at this time. Although she currently meets criteria for mild vascular cognitive impairment, her cognition has shown improvement since May and further cognitive recovery is likely. Neuropsychological Testing w/ Dr. Tamia Strauss (01/22/22): Patient displayed deficits in visual encoding (with intact retention), executive functioning, and visuoconstruction. She otherwise performed within expectations. When compared to her neuropsychological evaluation in July 2021, patient's performance was largely stable with mild improvements on measures of basic attention and verbal delayed recall and a mild decline on a measure of processing speed. Patient meets criteria for mild neurocognitive disorder. Her pattern of performance may be consistent with possible right frontoparietal dysfunction. The primary etiology is likely her history of subarachnoid hemorrhage and hydrocephalus secondary to aneurysm rupture. Poor sleep and depression symptoms may be secondary contributors. Her presentation is not currently consistent with a neurodegenerative condition given her performance was largely stable and even mildly improved in some areas when compared to her 2020 neuropsychological evaluation. Patient may experience some additional cognitive recovery over time. CT Head wo Contrast (07/13/21) 1. Interval right posterior communicating artery aneurysm coil embolization. 2. Resolution of hydrocephalus and subarachnoid hemorrhage. No new hemorrhage or herniation. Labs (07/28/21) Vit B12 = 197 TSH = 0.66 STMS 07/28/21: 27/38 01/22/22: 29/38 (equivalent to MMSE 24/30) Refusal of blood product Headache 09/06/2024 Atrial fibrillation 09/11/19 25 Immunizations Immunization Administration Dates Next Due Flu Vaccine =>65 YO High-Dose (PF) 06/12/2019 Pneumococcal Vaccine(13-[facility]/immunocompromised adult) 06/12/2019 Td Vaccine 11/20/2009 Surgical History Surgery Date Site/Laterality Comments PARTIAL HYSTERECTOMY TUBAL LIGATION ARTERIAL ANEURYSM REPAIR coiled PCOM Medical History Medical History Date Comments Chronic back pain Hyperlipidemia Refusal of blood product History of chlamydia Primary hypertension History of syphilis Benign paroxysmal positional vertigo due to bilateral vestibular disorder 01/01/2020 Disorganized thinking HFrEF (heart failure with re duced ejection fraction) ([facility]) CAD (coronary artery disease) History of ST elevation myocardial infarction ([place]) Aneurysm of posterior communicating artery Focal epilepsy ([facility]) History of tobacco use MCI (mild cognitive impairment) Osteoporosis Chronic left shoulder pain 08/10/2021 Left homonymous inferior quadrantanopia 05/02/20 Nuclear age-related cataract, both eyes 05/02/20 History of spontaneous subar achnoid intracranial hemorrhage due to cerebral aneurysm 06/09/2021 Hypokalemia 06/24/2024 Anticoagulated Eliquis History of stroke 2020 right posterio r Hemiparesis affecting left s niesha as late effect of stroke ([facility]) 05/2021 Vitamin D deficiency PAF (paroxysmal atrial fibrillation) ([facility]) Family History Medical History Relation Comments Cancer Father Hypertension Mother Strabismus Other Hypertension Sister Amblyopia Neg Hx Cancer-Breast Neg Hx Cancer-Colon Neg Hx Cancer-Ovarian Neg Hx Cancer-Uterine Neg Hx Dementia Neg Hx Diabetes Neg Hx Glaucoma Neg Hx Heart Disease Neg Hx Macular Degen Neg Hx Retinal Detachment Neg Hx Relation Status Comments Father Mother Other Sister Social History Tobacco Use Types Packs/Day Years Used Date Smoking Tobacco: Former Cigarettes 0.3 23.3 2 - 2021 Smokeless Tobacco: Never Tobacco Cessation:Counseling Given: Not Answered Alcohol Use Standard Drinks/Week Comments Not Currently 3 (1 standard drink = 0.6 oz pur e alcohol) PHQ-2 Answer Date Recorded PHQ-2 Score 1 11/19/2024 Social Connections Answer Date Recorded Do you often feel that you lack companionship? N o 12/28/2023 Alcohol Use Answer Date Recorded Alcohol Use No 11/19/2024 Male: 9+ ounces (15+ Standard Drinks) per week T hreshold Not on file 11/19/2024 Female: 4.8+ ounces (8+ Standard Drinks) per wee k Threshold 1.8 11/19/2024 Financial Resource Strain Answer Date R ecorded In the last 12 months, has y our [employer] shut off your service for not paying your bills? No 10/11/2024 Difficulty Obtaining Success Coach Not on file 10/11/2024 Lack of Money for Doctor Visit Not on file 0 10/11/2024 Skipped Medication to Save Money Not on file 10/11/2024 Food Insecurity Answer Date Recorded Within the past 12 months we worried whether our food would run out before we got money to buy more. Never True 10/11/2024 Lack of Money to Purchase More Food Not on file 10/11/2024 Transportation Needs Answer Date Record ed In the past 12 months, have you ever gone without health care because you didn't have a way to get there? No 10/11/2024 Housing Stability Answer Date Recorded Are you worried that in the next 2 months, you may not have stable housing? No 10/11/2024 Health Literacy Answer Date Recorded Do you [...] file Not on file Not on file Obstetrics History Para Term AB IAB SAB Ectopic Multiple Livin g Live Births 5 5 5 5 5 Date Outcome GA Total Labor Labor/2nd/3rd Weight Sex Type Anes PTL Jojo A1 A5 Name Clin Term Term Term Term Term Last Filed Vital Signs Vital Sign Reading Time Taken Comments Blood Pressure 147/61 11/19/2024 11:11 AM CDT Pulse 63 11/19/2024 11:11 AM CDT Temperature 36.3 C (97.3 F) 11/19/2024 11:11 AM CDT Respiratory Rate 16 06/22/2023 8:20 AM CDT Oxygen Saturation 96% 11/19/2024 11:11 AM CDT Inhaled Oxygen Concentration - - Weight 54.9 kg (121 lb) 11/14/2024 7:54 PM CDT Height 152.4 cm (5') 11/19/2024 11:11 AM CDT Body Mass Index 22.13 11/14/2024 7:54 PM CDT Plan of Treatment Health Maintenance Due Date Last Done Comments COLORECTAL CANCER SCREENING 10/27/1995 RSV VACCINE (60 years and Older/ Women) (1 - Risk 60-74 years 1-dose series) 2010 PNEUMOCOCCAL VACCINE AGE 50 AND OVER (2 of 2 - PPSV23) 08/07/2019 06/12/2019 DTAP/TDAP VACCINES (2 - Td o r Tdap) 01/20/2022 01/21/2012 (Previously completed), 11/20/2009 PHYSICAL (COMPREHENSIVE) EXAM 03/31/2023, 07/05/2019 BREAST CANCER SCREENING 05/25/2023 05/25/20, 04/20/2013 COVID-19 VACCINE (1 - 2023-2 5 season) 2024 ADVANCE CARE PLANNING DISCUSSION AND DOCUMENTATION 06/22/2024 06/22/2023, 03/31/2022 MEDICARE ANNUAL WELLNESS VISIT 06/22/2024 06/22/2023, 03/31/2022 INFLUENZA VACCINE (#1) 2025 9, 07/04/2014 SHINGLES RECOMBINANT VACCINE (1 of 2) 05/25/2033 Postponed from 10/26 (Insurance/Financial) HEPATITIS C SCREENING Completed 04/03/2022 OSTEOPOROSIS SCREENING/MONITORING Completed 05/25/2022 DEPRESSION SCREENING Completed 11/19/2024, 06/17/2021 HPV VACCINES Aged Out No longer eligi ble based on patient's age to complete this topic MENINGOCOCCAL B VACCINE Aged Out No l onger eligible based on patient's age to complete this topic Goals Goal Patient Goal Type Associated Problems Recent Progress Patient-Stated? Author Smoking Cessation Lifestyle On track( 021 3:15 PM CDT) Yes Jojo Salvador RN Note: To get better and quit smoking and get more healthy Medical Devices Implanted Type [employer] Device Identifier Shelf Expiration Date Model / Serial / Lot Coil Embolization 8cm 3mm Target Detachable Ultra 360d - Sna Implanted:Qty: 1 on 06/09/2021 by Puma Quiroz MD at [facility] Arterial [employer] [id number] 02/11/2024 M00 [id number] 80 / NA / [id number] Coil Embolization 8cm 4mm Target Detachable Soft 360d - Sna Implanted:Qty: 1 on 06/09/2021 by Puma Quiroz MD at [facility] Arterial [employer] [id number] 11/17/2023 M00 [id number] 80 / NA / [id number] Coil Embolization 4cm 2mm Target Detachable Ultra 360d Dup1 - Sna Implanted:Qty: 1 on 06/09/2021 by Puma Quiroz MD at [facility] Arterial [employer] [id number] 10/27/2023 M00 [id number] 40 / NA / [id number] Coil Embolization 3cm 2mm Target Detachable Ultra 360d - Sna Implanted:Qty: 1 on 06/09/2021 by Puma Quiroz MD at [facility] Arterial [employer] [id number] 01/27/2024 M00 [id number] 30 / NA / [id number] Coil Embolization 4cm 2mm Target Detachable Ultra 360d Dup1 - Sna Implanted:Qty: 1 on 06/09/2021 by Puma Quiroz MD at [facility] Arterial [employer] [id number] 12/09/2023 M00 [id number] 40 / NA / [id number] Device Closure 70cm 8fr .038in Angio-Seal Vip [place]-Plus - Sn/A Implanted:Qty: 1 on 06/09/2021 by Puma Quiroz MD at [facility] Right: Groin [employer] [id number] 02/18/2022 [id number] / N/A / [id number] Device Closure 70cm 6fr Angio-Seal Vip .035in Vascular - Sn/A Implanted:Qty: 1 on 02/09/2022 by Jonathan Ramos MD at [facility] Right: Femoral Artery [employer] [id number] 11/19/2022 [id number] / N/A / [id number] Device Closure 70cm 6fr Angio-Seal Vip .035in Vascular - Sn/A Implanted:Qty: 1 on 02/08/2023 by Evgeny Sifuentes MD at [facility] Right: Groin [employer] [id number] 07/21/2023 [id number] / N/A / [id number] Procedures Procedure Name Priority Date/Time Associated Diagnosis Comments BONE DENSITY SPINE/HIP Routine 05/25/2022 9:37 AM CDT Screening for osteoporosis MAMMO SCREEN BILAT/EMMA Routine 05/25/2022 9:11 AM CDT Encounter for screening mammogram for malignant neoplasm of breast HC HEPATITIS C JOJO Routine 04/03/2022 11 :26 AM CDT Screening examination for infectious disease from Last 3 Months or Most Recently Relevant to Health Maintenance Results * BONE DENSITY SPINE/HIP (05/25/2022 9:37 AM CDT) Anatomical Region Laterality Modality SPINE/LOWEXT Nuclear Medicine 05/25/2022 9:51 AM CDT Impressions 05/25/2022 9:53 AM CDT Osteoporosis. General comments regarding interpretation of bone mineral density measurements: a) Consider FDA-approved medical therapies in the setting of 1) Hip or vertebral fracture, 2) Osteoporosis, and 3) low bone mass, referred to as osteopenia, with FRAX score of greater than or equal to 3% for hip fracture or greater than or equal to 20% for major osteoporotic fracture. Treatment may also be indicated based on clinical judgement and/or patient preference. b) Interval between BMD testing should be determined according to each patient's clinical status: typically one year after initiation or change of therapy is appropriate, with longer intervals once therapeutic effect is established. In conditions with rapid bone loss, such as glucocorticoid therapy, testing more frequently is appropriate. Finalized by Javi Valente M.D. on 05/25/2022 9:53 AM. Dictated by Javi Valente M.D. on 05/25/2022 9:51 AM. Narrative 05/25/2022 9:53 AM CDT BONE DENSITOMETRY CLINICAL INDICATION: 71 years old Female, osteoporosis screening. COMPARISON: None FINDINGS: DEXA scan of the lumbar spine and bilateral hips were performed with Browntape. FRAX score was calculated from patient reported risk factors and femoral neck bone density. Bone mineral density of L3-L4 excluded due to hypertrophic degenerative changes and increased sclerosis which could artificially elevate the bone mineral density. LUMBAR SPINE, L1-L2 0.776 g/cm2, T-score of -3.3 LEFT FEMORAL NECK 0.600 g/cm2, T-score of -3.2 LEFT TOTAL HIP 0.610 g/cm2, T-score of -3.2 RIGHT FEMORAL NECK 0.603 g/cm2, T-score of -3.1 RIGHT TOTAL HIP 0.622 g/cm2, T-score of -3.1 FRAX SCORE Calculation of fracture risk using the FRAX model is not appropriate in certain settings. It was not performed in this patient because the patient met one or more of the following conditions: pre-menopausal status, men < age 50, normal bone density, osteoporotic patients, use of hormonal therapy within 1 year, use of anti-resorptive therapy within 2 years, or bilateral hip replacements. WHO Criteria for Diagnosis of Osteoporosis (T-score)* Normal (-1.0 and above) Low bone mass, referred to as osteopenia (Between -1.0 and -2.5) Osteoporosis (-2.5 and below) *Based on region with lowest bone mineral density. Procedure Note Javi Valente MD - 05/25/2022 BONE DENSITOMETRY CLINICAL INDICATION: 71 years old Female, osteoporosis screening. COMPARISON: None FINDINGS: DEXA scan of the lumbar spine and bilateral hips were performedwith Browntape. FRAX score was calculated from patientreported risk factors and femoral neck bone density. Bone mineral density of L3-L4 excluded due to hypertrophic degenerativechanges and increased sclerosis which could artificially elevate the bonemineral density. LUMBAR SPINE, L1-L2 0.776 g/cm2, T-score of -3.3 LEFT FEMORAL NECK 0.600 g/cm2, T-score of -3.2 LEFT TOTAL HIP 0.610 g/cm2, T-score of -3.2 RIGHT FEMORAL NECK 0.603 g/cm2, T-score of -3.1 RIGHT TOTAL HIP 0.622 g/cm2, T-score of -3.1 FRAX SCORE Calculation of fracture risk using the FRAX model is not appropriate incertain settings. It was not performed in this patient because thepatient met one or more of the following conditions: pre-menopausalstatus, men < age 50, normal bone density, osteoporotic patients, use ofhormonal therapy within 1 year, use of anti- resorptive therapy within 2years, or bilateral hip replacements. WHO Criteria for Diagnosis of Osteoporosis (T-score)* Normal (-1.0 and above) Low bone mass, referred to as osteopenia (Between -1.0 and -2.5) Osteoporosis (-2.5 and below) *Based on region with lowest bone mineral density. IMPRESSION Osteoporosis. General comments regarding interpretation of bone mineral densitymeasurements: a) Consider FDA-approved medical therapies in the setting of 1) Hip orvertebral fracture, 2) Osteoporosis, and 3) low bone mass, referred to asosteopenia, with FRAX score of greater than or equal to 3% for hipfracture or greater than or equal to 20% for major osteoporotic fracture.Treatment may also be indicated based on clinical judgement and/or patientpreference. b) Interval between BMD testing should be determined according to eachpatient's clinical status: typically one year after initiation or changeof therapy is appropriate, with longer intervals once therapeutic effectis established. In conditions with rapid bone loss, such as glucocorticoidtherapy, testing more frequently is appropriate. Finalized by Javi Valente M.D. on 05/25/2022 9:53 AM. Dictated by Sudha Blackwood on 05/25/2022 9:51 AM. us Yina Putnam MD DEXA ORDERABLES Final Result * MAMMO SCREEN BILAT/EMMA/CAD (05/25/2022 9:11 AM CDT) Anatomical Region Laterality Modality Breast Bilateral Mammography 05/27/2022 10:0 7 AM CDT Impressions 05/27/2022 10:07 AM CDT ASSESSMENT: BIRAD 1-Negative RECOMMENDATION: Routine screening mammogram in 1 year. Narrative 05/27/2022 10:07 AM CDT Last mammogram was performed 2 years and 10 months ago. [id number] DIGITAL MAMMO SCREEN BILAT/EMMA/CAD: MAY 25, 2022 - 3D Procedure 3D Routine views. 2D Synthetic Routine views. Prior study comparison: August 07, 2019, mammogram. April 12, 2017, mammogram. There are scattered areas of fibroglandular density. 3-D (digital tomosynthesis) and synthetic 2-D images were obtained bilaterally. No suspicious abnormality is seen. Finalized by Susanna Tuttle M.D. on 05/27/2022 10:07 AM. Dictated by Susanna Tuttle M.D. on 05/27/2022 10:07 AM. Electronically signed and approved by: Susanna Tuttle M.D. [id number] Procedure Note Susanna Tuttle MD - 05/27/2022 Last mammogram was performed 2 years and 10 months ago. [id number] DIGITAL MAMMO SCREEN BILAT/EMMA/CAD: MAY 25, 2022 - 3D Procedure 3D Routine views. 2D Synthetic Routine views. Prior study comparison: August 07, 2019, mammogram. April 12, 2017, mammogram. There are scattered areas of fibroglandular density. 3-D (digital tomosynthesis) and synthetic 2-D images were obtained bilaterally. No suspicious abnormality is seen. Finalized by Susanna Tuttle M.D. on 05/27/2022 10:07 AM. Dictated by Susanna Tuttle M.D. on 05/27/2022 10:07 AM. Electronically signed and approved by: Susanna Tuttle M.D. [id number] IMPRESSION ASSESSMENT: BIRAD 1-Negative RECOMMENDATION: Routine screening mammogram in 1 year. Yina Putnam MD MAMMO ORDERABLES Final Resul t * HEPATITIS C ANTIBODY W REFLEX HCV PCR QUANT (04/03/2022 11:26 AM CDT) Anti HCV NONREACTIVE NR-NONREA CTIVE 04/03/2022 12:44 PM CDT [facility] Comment:Antibodies to HCV we re not detected. BLOOD / Unknown 04/03/2022 1 1:26 AM CDT 04/03/2022 11:28 AM CDT Yina Putnam MD LABORATORY ORDERABLES Final Result [facility] [address] [place] [address], [place] from Last 3 Months or Most Recently Relevant to Health Maintenance Insurance [facility] MEDICARE REPLACEMENT - [id number] [place] [address] [employer] CHOICE PPO MEDICARE Advance Directives * Full Code (Latest Code Status on File) Date Activated Date Inactivated Comments 10/09/2024 12:21 PM 10/16/2024 7:12 PM Question Answer Comments Provider has discussed Code Status w/Patient or Family? No, more discussion needed * Full Code Date Activated Date Inactivated Comments 09/06/2024 10:25 AM 09/11/2024 7:35 PM Question Answer Comments Provider has discussed Code Status w/Patient or Family? No, more discussion needed * Full Code Date Activated Date Inactivated Comments 06/23/2024 9:31 PM 06/26/2024 6:58 PM Question Answer Comments Provider has discussed Code Status w/Patient or Family? No, more discussion needed * Full Code Date Activated Date Inactivated Comments 12/20/2023 8:26 PM 12/23/2023 7:04 PM Question Answer Comments Provider has discussed Code Status w/Patient or Family? Yes * Full Code Date Activated Date Inactivated Comments 06/12/2021 2:40 PM 06/19/2021 11:48 AM Question Answer Comments Provider has discussed Code Status w/Patient or Family? Yes Care Teams Chute Loader Relationship Specialty Start Date End Date Yina Putnam MD [address] [place] [address] PCP - General Family Medicine 08/02/19 Yina Putnam MD [address] [place] [address] CCP - Continuity of Care Provider Family Medicine 08/02/19 Teofilo Campbell DO [address] [place], [place] [id number] Neurology 08/28/21
--- OUTSIDE RECORDS SUMMARY | 2025-02-21 05:43 | XMS_ITS | Encounter Summary ---
Author Organization [facility] Address [address] [place] [address] Care Team Providers Care Social Worker Palliative Care Name Role Phone Yina Putnam MD Primary Care Provider [phone] Yina Putnam MD Unavailable [phone] Teofilo Campbell DO Unavailable [phone] Reason for Visit * Reason Comments Medication Refill Encounter Details Date Type Department Care Team (Late st Contact Info) Description 07/11/2022 Refill Neurology: [facility] [address] [facility]. [address], [address] [place] [address] Teofilo Campbell DO [address] [place] [address] Mild cognitive impairment Social History Tobacco Use Types Packs/Day Years [...] In the last 12 months, has y [employer] shut off your service for not paying [...] of Assessment Author No 04/13/2022 10:54 AM AYALAT Key Baxter * Does the patient have a visual impairment: Answer Date of Assessment Author Yes 04/13/2022 10:54 AM Key Salazar * Does the patient have impaired ambulation: [...] of Assessment Author Yes 06/19/2021 10:25 AM AYALAT Priyanka Rothman RN documented as of this [...] documented as of this encounter Visit Diagnoses Diagnosis Mild cognitive impairment Mild cognitive impairment, so stated documented in this encounter Additional Health Concerns Infection Onset Date Last Indicated Resolved Time Covid-19 Rule-Out 06/22/2023 06/23/2023 06/23/2023 1:51 AM CDT Flu/RSV Rule-Out 06/22/2023 06/23/2023 06/23/2023 1:51 AM CDT Covid-19 Rule-Out 09/06/2024 09/06/2024 09/06/2024 8:29 AM SOCIETY REPORTER Flu/RSV Rule-Out 09/06/2024 09/06/2024 09/06/2024 8:29 AM SOCIETY REPORTER Covid-19 Rule-Out 09/18/2024 09/18/2024 09/18/2024 2:11 AM SOCIETY REPORTER Flu/RSV Rule-Out 09/18/2024 09/18/2024 09/18/2024 2:11 AM SOCIETY REPORTER Assessment Noted Time PHQ-9 Depression Total Score: 3 02/18/20 11:16 AM CDT A fall risk assessment has been complete d for the patient 04/13/2022 10:54 AM CDT A Body Mass Index follow-up plan has been documented for the patient 08/06/2019 7:29 AM SOCIETY REPORTER PHQ-2 Depression Total Score: 0 04/13/20 10:54 AM CDT documented as of this encounter Care Teams Social Worker Palliative Care Relationship Specialty Start Date End Date Yina Putnam MD [address] [place] [address] PCP - General Family Medicine 08/02/19 Yina Putnam MD [address] [place] [address] CCP - Continuity of Care Provider Family Medicine 08/02/19 Teofilo Campbell DO [address] [place], [place] [id number] Neurology 08/28/21 documented as of this encounter
--- OUTSIDE RECORDS SUMMARY | 2025-02-21 05:43 | XMS_ITS | Encounter Summary ---
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 yes documented in this encounter Plan of Treatment Not on file documented as of this encounter Visit Diagnoses Not on filedocumented in this encounter Care Teams Transport Aircrewman Relationship Specialty Start Date End Date Iggy Grover MD PCP - General 11/20/14 documented as of this encounter
--- OUTSIDE RECORDS SUMMARY | 2025-02-21 05:43 | XMS_ITS | Encounter Summary ---
Author Organization [facility] Address [address] [place] [address] Care Team Providers Care Plant Reliability Engineer Name Role Phone Yina Putnam MD Primary Care Provider [phone] Yina Putnam MD Unavailable [phone] Teofilo Campbell DO Unavailable Reason for Visit * Reason Comments Medication Refill Encounter Details Date Type Department Care Team (Late st Contact Info) Description 10/29/2024 Refill Family [facility]: [facility] [address] [place] [address] [address], [place] [address] Marcy Tuttle, DO [address] [place] [address] (Fax) Social History Tobacco Use Types Packs/Day Years [...] the last 12 months, has y our [employer] company shut off your service for not paying your bills? No 10/11/2024 Difficulty Obtaining Cloth Shrinking Machine Operator Helper Not on file 10/11/2024 Lack of Money [...] impairment: Answer Date of Assessment Author No 10/10/2024 5:08 AM Rayne Kamara, MATTHIAS * Does the patient have a visual impairment: Answer Date of Assessment Author Yes 07/03/2024 10:34 AM Zay Cooper * Does the patient have impaired ambulation: [...] filedocumented in this encounter Additional Health Concerns Assessment Noted Time PHQ-9 Depression Total Score: 3 02/18/20 22 11:16 AM CDT A fall risk assessment has been complete d for the patient 10/16/2024 10:30 AM BUTTON SPINDLER A Body Mass Index follow-up plan has been documented for the patient 08/06/2019 7:29 AM BUTTON SPINDLER PHQ-2 Depression Total Score: 0 06/28/20 24 7:46 AM BUTTON SPINDLER documented as of this encounter Care Teams Plant Reliability Engineer Relationship Specialty Start Date End Date Yina Putnam MD [address] [place] [address] PCP - General Family Medicine 08/02/19 Yina Putnam MD [address] [place] [address] CCP - Continuity of Care Provider Family Medicine 08/02/19 Teofilo Campbell DO [address] [place] [address] Neurology 08/28/21 documented as of this encounter
--- OUTSIDE RECORDS SUMMARY | 2025-02-21 05:43 | XMS_ITS | Encounter Summary ---
Author Organization [facility] Address [address] [place] [address] Care Team Providers Care Rope Laying Machine Operator Name Role Phone Yina Putnam MD Primary Care Provider [phone] Yina Putnam MD Unavailable [phone] Teofilo Campbell DO Unavailable [phone] Reason for Visit * Reason Comments Medication Refill Encounter Details Date Type Department Care Team (Late st Contact Info) Description 09/30/2024 Refill Emergency Department: [place], [place] [address] [facility] [address] [place] [address] Arely Walton APRN-YRN [address] [place] [address] Social History Tobacco Use Types Packs/Day Years [...] the last 12 months, has y our [employer] company shut off your service for not [...] impairment: Answer Date of Assessment Author No 09/18/2024 12:16 AM ASSOCIATE FACULTY Sherry Kinney, MATTHIAS * Does the patient have a visual impairment: Answer Date of Assessment Author Yes 07/03/2024 10:34 AM ASSOCIATE FACULTY Zay Frazier * Does the patient have [...] track( 021 3:15 PM CDT) Yes Jojo Salvador, MATTHIAS Note: To get better and quit smoking and get more healthy documented as of this encounter Visit Diagnoses Not on filedocumented in this encounter Additional Health Concerns Assessment Noted Time PHQ-9 Depression Total Score: 3 02/18/20 22 11:16 AM CDT A fall risk assessment has been complete d for the patient 09/11/2024 8:00 AM ASSOCIATE FACULTY A Body Mass Index follow-up plan has been documented for the patient 08/06/2019 7:29 AM ASSOCIATE FACULTY PHQ-2 Depression Total Score: 0 06/28/20 24 7:46 AM ASSOCIATE FACULTY documented as of this encounter Care Teams Rope Laying Machine Operator Relationship Specialty Start Date End Date Yina Putnam MD [address] [place] [address] PCP - General Family Medicine 08/02/19 Yina Putnam MD [address] [place] [address] CCP - Continuity of Care Provider Family Medicine 08/02/19 Teofilo Campbell DO [address] [place] [address] Neurology 08/28/21 documented as of this encounter
--- OUTSIDE RECORDS SUMMARY | 2025-02-21 05:43 | XMS_ITS | Encounter Summary ---
Author Organization [facility] Address [address] [place] [address] Care Team Providers Care Photographer News Name Role Phone Iggy Grover MD Primary Care Provider Kathy addison Encounter Details Date Type Department Care Team (Late st Contact Info) Description 04/18/2013 Allscripts Note [facility] [place] [address] 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 Gender Identity Not on file Sexual Orientation Not on file documented as of this encounter Miscellaneous Notes * Miscellaneous - Iggy Grover MD - 04/18/2013 9:20 AM CDT Verified Results Collected/Examined: Apr 13, 2013 10:16AM Test Result Flag Acceptable CBC with Diff WHITE BLOOD CELL COUNT 4.57 TH/uL 4.00-11.00 Red Blood Cell Count 4.79 MIL/uL 4.00-5.00 Hemoglobin 13.5 g/dL 12.0-15.0 Hematocrit 38 % 36-45 Mean Corpuscular Volume 79 fL L 80-99 Mean Corpuscular Hgb 28 pg 27-34 Mean Corpuscular Hgb Conc 36 % 32-36 Red Cell Distribution Width 14.5 % 9.0-14.5 Platelet Count 247 TH/uL 140-400 Mean Platelet Volume 12.2 fL 9.4-12.3 % Segmented Neutrophils, Auto 53 % 45-78 % Lymphocytes, Auto 36 % 15-47 % Monocytes, Auto 7 % 0-12 % Eosinophils, Auto 2 % 0-7 % Basophils, Auto 1 % 0-2 # Grans 2.44 TH/uL 1.70-6.80 # Lymphs 1.66 TH/uL 1.00-3.30 # Monos 0.34 TH/uL 0.20-0.90 # Eos 0.10 TH/uL 0.00-0.40 # Basos 0.03 TH/uL 0.00-0.10 Comprehensive Metabolic Sodium 143 MEQ/L 133-147 Potassium 4.2 MEQ/L 3.5-5.3 Potassium reference interval changed on 01/17/2013.^^ Chloride 106 MEQ/L 96-112 Carbon Dioxide 30 MEQ/L 20-30 Anion Gap 7 5-17 Calcium 9.5 mg/dL 8.4-10.2 Protein Total Serum 6.8 g/dL 6.0-8.2 Albumin 4.4 g/dL 3.5-5.0 Alkaline Phosphatase 83 IU/L 42-140 Alanine Aminotransferase 33 IU/L 13-69 Aspartate Aminotransferase 21 IU/L 15-46 Bilirubin Total 0.6 mg/dL 0.2-1.3 Blood Urea Nitrogen 9 mg/dL 7-26 Creatinine 0.7 mg/dL 0.4-1.1 Gfrf Aa 102 Chronic Kidney Disease less than 60 mL/min/1.73 sq.m^^ Kidney failure less than 15 mL/min/1.73 sq.m^^ Gfrf Non Aa 85 Chronic Kidney Disease less than 60 mL/min/1.73 sq.m^^ Kidney failure less than 15 mL/min/1.73 sq.m^^ Urinalysis And Microscopic Appearance, Urine Yellow Bilirubin, Urine Negative Negative Ketones, Urine Negative mg/dL Negative Specific [place] 1.013 1.001-1.030 Hemoglobin, Urine Negative Negative Urine Protein, Qualitative Negative mg/dL Negative Urobilinogen, Urine Negative EU/dL Negative Leukocyte Negative Negative Epithelial Cells Absent Absent Microscopic Wbc, Urine 6 - 10 A 1 - 5 Glucose Urine Negative mg/dL Negative Microscopic Rbc, Urine 1 - 5 1 - 5 Bacteria Large A Absent Hyaline Cast Absent Absent Ph, Urine 6.0 5.0-8.0 Glucose 78 mg/dL 70-100 Erythrocyte Sedimentation Rate 8 mm/h 0-17 Thyroid Stimulating Hormone 0.43 uIU/mL L 0.47-4.68 C-Reactive Protein <5.0 mg/L 0.0-10.0 Infection or Inflammation >10.0 mg/L^^ ^^ Vitamin B12 479 pg/mL 239-931 Lipid Profile Cholesterol Lipid Prof 181 mg/dL 100-200 Triglycerides 69 mg/dL 0-150 Hdl 68 mg/dL 40-110 Ldl Cholesterol 99 mg/dL 0-99 Total Cholesterol/Hdl Ratio 2.7 0.0-4.5 Non- HDL Cholesterol 113 mg/dL 0-130 Discussion/Summary if having any urinary sx, would repeat UA with C&S. Thyroid borderline. check free T4, recheck TSH * Miscellaneous - Iggy Grover MD - 04/18/2013 9:20 AM CDT Verified Results Collected/Examined: Apr 13, 2013 10:16AM Test Result Flag Acceptable CBC with Diff WHITE BLOOD CELL COUNT 4.57 TH/uL 4.00-11.00 Red Blood Cell Count 4.79 MIL/uL 4.00-5.00 Hemoglobin 13.5 g/dL 12.0-15.0 Hematocrit 38 % 36-45 Mean Corpuscular Volume 79 fL L 80-99 Mean Corpuscular Hgb 28 pg 27-34 Mean Corpuscular Hgb Conc 36 % 32-36 Red Cell Distribution Width 14.5 % 9.0-14.5 Platelet Count 247 TH/uL 140-400 Mean Platelet Volume 12.2 fL 9.4-12.3 % Segmented Neutrophils, Auto 53 % 45-78 % Lymphocytes, Auto 36 % 15-47 % Monocytes, Auto 7 % 0-12 % Eosinophils, Auto 2 % 0-7 % Basophils, Auto 1 % 0-2 # Grans 2.44 TH/uL 1.70-6.80 # Lymphs 1.66 TH/uL 1.00-3.30 # Monos 0.34 TH/uL 0.20-0.90 # Eos 0.10 TH/uL 0.00-0.40 # Basos 0.03 TH/uL 0.00-0.10 Comprehensive Metabolic Sodium 143 MEQ/L 133-147 Potassium 4.2 MEQ/L 3.5-5.3 Potassium reference interval changed on 01/17/2013.^^ Chloride 106 MEQ/L 96-112 Carbon Dioxide 30 MEQ/L 20-30 Anion Gap 7 5-17 Calcium 9.5 mg/dL 8.4-10.2 Protein Total Serum 6.8 g/dL 6.0-8.2 Albumin 4.4 g/dL 3.5-5.0 Alkaline Phosphatase 83 IU/L 42-140 Alanine Aminotransferase 33 IU/L 13-69 Aspartate Aminotransferase 21 IU/L 15-46 Bilirubin Total 0.6 mg/dL 0.2-1.3 Blood Urea Nitrogen 9 mg/dL 7-26 Creatinine 0.7 mg/dL 0.4-1.1 Gfrf Aa 102 Chronic Kidney Disease less than 60 mL/min/1.73 sq.m^^ Kidney failure less than 15 mL/min/1.73 sq.m^^ Gfrf Non Aa 85 Chronic Kidney Disease less than 60 mL/min/1.73 sq.m^^ Kidney failure less than 15 mL/min/1.73 sq.m^^ Urinalysis And Microscopic Appearance, Urine Yellow Bilirubin, Urine Negative Negative Ketones, Urine Negative mg/dL Negative Specific [place] 1.013 1.001-1.030 Hemoglobin, Urine Negative Negative Urine Protein, Qualitative Negative mg/dL Negative Urobilinogen, Urine Negative EU/dL Negative Leukocyte Negative Negative Epithelial Cells Absent Absent Microscopic Wbc, Urine 6 - 10 A 1 - 5 Glucose Urine Negative mg/dL Negative Microscopic Rbc, Urine 1 - 5 1 - 5 Bacteria Large A Absent Hyaline Cast Absent Absent Ph, Urine 6.0 5.0-8.0 Glucose 78 mg/dL 70-100 Erythrocyte Sedimentation Rate 8 mm/h 0-17 Thyroid Stimulating Hormone 0.43 uIU/mL L 0.47-4.68 C-Reactive Protein <5.0 mg/L 0.0-10.0 Infection or Inflammation >10.0 mg/L^^ ^^ Vitamin B12 479 pg/mL 239-931 Lipid Profile Cholesterol Lipid Prof 181 mg/dL 100-200 Triglycerides 69 mg/dL 0-150 Hdl 68 mg/dL 40-110 Ldl Cholesterol 99 mg/dL 0-99 Total Cholesterol/Hdl Ratio 2.7 0.0-4.5 Non- HDL Cholesterol 113 mg/dL 0-130 Discussion/Summary if having any urinary sx, would repeat UA with C&S. Thyroid borderline. check free T4, recheck TSH documented in this encounter Plan of Treatment Not on file documented as of this encounter Visit Diagnoses Not on filedocumented in this encounter Care Teams Photographer News Relationship Specialty Start Date End Date Iggy Grover MD PCP - General 11/20/14 documented as of this encounter
--- OUTSIDE RECORDS SUMMARY | 2025-02-21 05:43 | XMS_ITS | Encounter Summary ---
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 : 04:55pm .T: mri head report [id number] .PV: [facility] ?INVALID LINK:Jojo Shook Mri head report [id number]\Jojo Shook Mri head report [id number]? Indexed by Mallory Morales date: Saturday, June 29, 2013 at 4:57:34 PM MRI of the brain and brainstem without and with contrast from May 21, 2013 was reviewed (report only) and reported as impression: One. No MR evidence of acute infarction or hemorrhage. No abnormal contrast enhancement. 2. Mild age- appropriate cerebral atrophy. 3. Mild in severity periventricular and deep white matter FLAIR hyperintensities are nonspecific but likely associated with chronic small vessel ischemic disease. # SIGNED BY Narayan Mejias ([facility]) 07/02/2013 08:49AM NER/MEDICAL EXAMINER documented in this encounter Plan of Treatment Not on file documented as of this encounter Visit Diagnoses Not on filedocumented in this encounter Care Teams Chief Deputy Court Clerk Relationship Specialty Start Date End Date Iggy Grover MD PCP - General 11/20/14 documented as of this encounter
[2025-02-21 06:01] LABS: Hematocrit 35.9 % (37.0-47.0); Hemoglobin 12.0 g/dL (12.0-15.0); Immature Granulocyte Percent A 0.2 % (0-0.5); Lymphocytes Absolute Auto 1.00 K/mm3 (0.9-3.2); Mean Corpuscular HGB Conc 33.4 g/dl (32-36); Mean Corpuscular Hemoglobin 29.3 pg (26-34); Mean Corpuscular Volume 87.6 fl (80-100); Nucleated Red Blood Cells Absolute Auto 0.000 K/mm3 (0.0-0.012); Nucleated Red Blood Cells Perc 0.0 % (0.0-0.2); Platelet Count Result 122 k/mm3 (150-375); Red Blood Count 4.10 M/mm3 (4.2-5.4); White Blood Count 8.5 K/mm3 (4.5-10.0)
[2025-02-21 06:06] LABS: Add Urine Microscopic? YES; Appearance Urine Clear (Clear); Glucose Urine UA Negative (Negative); Leukocyte Esterase Ur 2+ LEU/UL (Negative); Nitrate Urine Negative (Negative); Non Pathogenic Casts 0-2; Specific Grav Ur 1.015 (1.001-1.035)
[2025-02-21 06:15] LABS: Alanine Aminotransferase 16 U/L (6-35); Albumin Level 4.2 g/dL (3.5-5.1); Alkaline Phosphatase 69 U/L (38-126); Anion Gap 9 mmol/L (4-12); Aspartate Amino Transferase 26 U/L (14-36); Bilirubin,Total 0.3 mg/dL (0.2-1.3); Blood Urea Nitrogen 13 mg/dL (7-17); Calcium 9.7 mg/dL (8.4-10.2); Carbon Dioxide 29 mmol/L (22-30); Chloride 106 mmol/L (98-107); Creatine Kinase 72 U/L (30-135); Estimated CRCL calculation 43 ml/min; Estimated Glomerular Filt Rate > 60; Glucose 82 mg/dL (65-110); Magnesium 2.0 mg/dL (1.6-2.3); Potassium 3.5 mmol/L (3.4-5.0); Sodium 144 mmol/L (137-145); Total Protein 7.0 g/dL (6.3-8.2)
[2025-02-21 06:19] LABS: Cannabinoid Screen Urine Negative (Negative)
[2025-02-21 06:39] LABS: Influenza A QL RT-PCR Negative (Negative); Influenza B QL RT-PCR Negative (Negative); RSV RNA, RT-PCR Negative (Negative); SARS-CoV-2 RNA PCR Negative (Negative)
[2025-02-21 06:45] LABS: Thyroid Stimulating Hormone 1.160 uIU/mL (0.465-4.680)
[2025-02-21] MEDS: CEPHALEXIN 500 MG CAPSULE PO (08:34)
[2025-02-28 09:02] LABS: Levetiracetam Keppra. 91.8 mcg/mL (6.0-46.0)
== END 2025-02-21 08:36 | disposition home or self-care (01) ==
PROVIDERS: Emergency Provider Student in an Organized Health Care Education/Training Program
DX: R68.83 Chills (without fever) (principal); R82.90 Unspecified abnormal findings in urine; R56.9 Unspecified convulsions; R25.1 Tremor, unspecified; G93.89 Other specified disorders of brain; Z79.899 Other long term (current) drug therapy; Z20.822 Contact with and (suspected) exposure to COVID-19
CPT/HCPCS: 36415; 70496; 70498; 71045; 80053; 80164; 80165; 80177; 80307; 81001; 82550; 83735; 84443; 85025; 87086; 87637; 99284; A9270; Q9967